=== PATIENT | female | born 1975 | race African-American/Black ===

== ENCOUNTER 2017-04-19 17:59 | Inpatient (IN) | payer MEDICAID, OTHER ==
[~2017-04-19] VITALS: Ht 165.1 cm; Wt 54.4 kg
[~2017-04-19 17:59] MED LIST: IOHEXOL-350 100 ML BOTTLE ONE; SODIUM CHLORIDE 0.9% 10ML VIAL ONE
[2017-04-19] MEDS ORDERED: MORPHINE SULFATE 4 MG/ML CPJ (NOT FOR IM USE) IV STA (18:42)
[2017-04-19] MEDS ORDERED: ONDANSETRON HCL 4MG/2ML VIAL IV STA (18:42)
[2017-04-19 19:14] LABS: BASOPHILS % 0.3 % (0.0-2.0); EOSINOPHILS % 0.2 % (0.0-5.0); HEMATOCRIT. 35.2 % (36.0-48.0); HEMOGLOBIN. 11.5 g/dL (12.0-16.0); INR 1.1; LYMPHOCYTES % 11.6 % (20.0-50.0); MEAN CORPUSCULAR HEMOGLOBIN 27.7 pg (28.0-32.0); MEAN CORPUSCULAR VOLUME 84.8 fL (81.0-99.0); MEAN PLATELET VOLUME 8.2 fl (7.4-10.4); MONOCYTES % 3.2 % (2.0-8.0); NEUTROPHILS % 84.7 % (40.0-76.0); PARTIAL THROMBOPLASTIN TIME 26.8 sec (23.4-31.0); PLATELET 430 x1000/uL (130-400); PROTHROMBIN TIME 11.4 sec (9.4-11.6); RED BLOOD CELL COUNT 4.15 mill/uL (4.2-5.4); RED CELL DISTRIBUTION WIDTH 17.7 % (11.6-14.6)
[2017-04-19 19:21] LABS: B-HCG QUANTITATIVE < 1 mIU/mL (<3); CARBON DIOXIDE 24 mEq/L (21-32); CHLORIDE 103 mEq/L (98-107); ETHANOL BLOOD < 10 mg/dL; TROPONIN I < 0.02 ng/mL (0.00-0.04)
[2017-04-19] MEDS ORDERED: PANTOPRAZOLE SODIUM 40 MG/VIAL IV ONE (20:00)
[2017-04-19] MEDS ORDERED: MORPHINE SULFATE 4 MG/ML CPJ (NOT FOR IM USE) IV ONE (22:00)
[2017-04-20] MEDS ORDERED: MORPHINE SULFATE 4 MG/ML CPJ (NOT FOR IM USE) IV ONE (00:15)
[2017-04-20] MEDS ORDERED: SODIUM CHLORIDE 0.9% 1,000 ML IV ONE (00:15)
[2017-04-20] MEDS ORDERED: ONDANSETRON HCL 4MG/2ML VIAL IV ONE (00:15)
[2017-04-20] MEDS ORDERED: ACETAMINOPHEN 325MG TABLET PO PRN (06:15)
[2017-04-20] MEDS ORDERED: DIPHENHYDRAMINE 50MG/ML VIAL IV PRN (06:15)
[2017-04-20] MEDS ORDERED: CLONIDINE 0.1MG TABLET PO PRN (06:15)
[2017-04-20] MEDS: ONDANSETRON HCL 4MG/2ML VIAL IV PRN ×2 (08:29→16:10)
[2017-04-20] MEDS: MORPHINE SULFATE 4 MG/ML CPJ (NOT FOR IM USE) IV PRN ×3 (08:29→17:41)
[2017-04-20] MEDS: PANTOPRAZOLE SODIUM 40 MG/VIAL IV SCH (09:00)
[2017-04-20] MEDS: SODIUM CHLORIDE 0.9% 1,000 ML IV SCH ×2 (10:26→23:20)
[2017-04-20 11:33] VITALS: BP 120/52
[2017-04-20 16:00] VITALS: BP 130/83
[2017-04-20] MEDS ORDERED: CARI350T PO (17:22)
[2017-04-20 20:00] VITALS: BP 90/69
[2017-04-20] MEDS ORDERED: TEMAZEPAM 15MG CAPSULE PO PRN (21:00)
[2017-04-20] MEDS: CARISOPRODOL 350 MG TABLET PO SCH (21:26)
[2017-04-20] MEDS: NICOTINE 21MG PATCH TD SCH (23:06)
[2017-04-21] VITALS: BP 96/74
[2017-04-21 04:00] VITALS: BP 100/68
[2017-04-21 08:00] VITALS: BP 111/86
[2017-04-21] MEDS: PANTOPRAZOLE SODIUM 40 MG/VIAL IV SCH (09:15)
[2017-04-21] MEDS: CARISOPRODOL 350 MG TABLET PO SCH ×2 (09:15→13:50)
[2017-04-21] MEDS: NICOTINE 21MG PATCH TD SCH (09:16)
[2017-04-21] MEDS: MORPHINE SULFATE 4 MG/ML CPJ (NOT FOR IM USE) IV PRN (09:31)
[2017-04-21 15:15] VITALS: BP 151/75
== END 2017-04-21 15:36 | disposition home or self-care (01) | DRG 241 ==
LOC: ER 18:26 → ENRESERV 04-20 07:11 → 8WST 04-20 10:58
PROVIDERS: ADMIT Internal Medicine; ATTEND Internal Medicine
DX: K29.70 Gastritis, unspecified, without bleeding (principal); J44.9 Chronic obstructive pulmonary disease, unspecified; E11.9 Type 2 diabetes mellitus without complications; G89.4 Chronic pain syndrome; F41.1 Generalized anxiety disorder; F17.210 Nicotine dependence, cigarettes, uncomplicated; G47.00 Insomnia, unspecified; M54.5 Low back pain; F12.90 Cannabis use, unspecified, uncomplicated; Z82.49 Family history of ischemic heart disease and other diseases of the circulatory system; Z83.3 Family history of diabetes mellitus; Z87.11 Personal history of peptic ulcer disease; Z87.442 Personal history of urinary calculi
CPT/HCPCS: 36415; 71010; 71275; 74174; 80053; 82962; 83690; 84484; 84702; 85025; 85610; 85730; 93005; 96374; 96375; 96376; 99285; A4216; C9113; G0482; J1200; J2270; J2405; J7030; Q9967

== ENCOUNTER 2017-06-19 15:32 | Inpatient (IN) | payer SELFPAY ==
[~2017-06-19] VITALS: Ht 162.6 cm; Wt 54.9 kg
[~2017-06-19 15:32] MED LIST changes: +CARI350T PO; -IOHEXOL-350 100 ML BOTTLE ONE; -SODIUM CHLORIDE 0.9% 10ML VIAL ONE
[2017-06-19] MEDS ORDERED: ONDANSETRON HCL 4MG/2ML VIAL IV STA (16:39)
[2017-06-19] MEDS ORDERED: SODIUM CHLORIDE 0.9% 1,000 ML IV ONE ×2 (16:39→19:10)
[2017-06-19] MEDS ORDERED: FENTANYL CITRATE/PF 50MCG/ML 2ML VIAL IV ONE (16:45)
[2017-06-19 17:18] LABS: BASOPHILS % 0.3 % (0.0-2.0); HEMATOCRIT. 36.2 % (36.0-48.0); HEMOGLOBIN. 11.9 g/dL (12.0-16.0); LYMPHOCYTES % 8.2 % (20.0-50.0); MEAN CORPUSCULAR HEMOGLOBIN 27.9 pg (28.0-32.0); MEAN CORPUSCULAR VOLUME 84.7 fL (81.0-99.0); MEAN PLATELET VOLUME 8.4 fl (7.4-10.4); MONOCYTES % 2.5 % (2.0-8.0); PLATELET 261 x1000/uL (130-400); RED BLOOD CELL COUNT 4.27 mill/uL (4.2-5.4); RED CELL DISTRIBUTION WIDTH 16.8 % (11.6-14.6)
[2017-06-19 17:25] LABS: INR 1.1; PARTIAL THROMBOPLASTIN TIME 24.1 sec (23.4-31.0); PROTHROMBIN TIME 11.3 sec (9.4-11.6)
[2017-06-19 17:28] LABS: HCG SCREEN NEGATIVE
[2017-06-19 17:29] LABS: CARBON DIOXIDE 23 mEq/L (21-32); CHLORIDE 104 mEq/L (98-107); ETHANOL BLOOD < 10 mg/dL
[2017-06-19] MEDS ORDERED: METOCLOPRAMIDE HCL 10MG/2ML VIAL IV ONE (19:15)
[2017-06-19 19:44] LABS: CLARITY URINE CLOUDY (CLEAR); COLOR URINE YELLOW (YELLOW); GLUCOSE URINE NEGATIVE (NEGATIVE); KETONES URINE 3+ (NEGATIVE); LEUKOCYTE ESTERASE URINE TRACE (NEGATIVE); NITRITE URINE POSITIVE (NEGATIVE); OCCULT BLOOD URINE 3+ (NEGATIVE); PROTEIN URINE 1+ (NEGATIVE); SPECIFIC GRAVITY URINE 1.026 (1.005-1.030); UROBILINOGEN URINE 0.2 E.U./dL (0.2-1.0)
[2017-06-19 20:20] LABS: *AMPHETAMINES SCREEN URINE NEGATIVE (NEGATIVE); *BARBITURATES SCREEN URINE NEGATIVE (NEGATIVE); *BENZODIAZEPINES SCREEN URINE NEGATIVE (NEGATIVE); *COCAINE SCREEN URINE NEGATIVE (NEGATIVE); METHADONE URINE SCREEN NEGATIVE (NEGATIVE); OPIATES URINE SCREEN NEGATIVE (NEGATIVE); PHENCYCLIDINE URINE SCREEN NEGATIVE (NEGATIVE)
[2017-06-19 20:22] LABS: CANNABINOID URINE SCREEN PRESUMTIVE POSITIVE (NEGATIVE)
[2017-06-19] MEDS ORDERED: CEFTRIAXONE 1 G PREMIX 50 ML IV ONE (20:45)
[2017-06-19 22:00] VITALS: BP 130/97
[2017-06-20] VITALS: BP 130/97
[2017-06-20] MEDS: ONDANSETRON HCL 4MG/2ML VIAL IV PRN ×4 (01:46→23:07)
[2017-06-20] MEDS: MORPHINE SULFATE 4 MG/ML CPJ (NOT FOR IM USE) IV PRN ×6 (01:46→23:08)
[2017-06-20] MEDS: DEXT 5%/0.45% NACL 1000ML 1,000 ML IV SCH ×3 (01:52→23:13)
[2017-06-20 04:00] VITALS: BP 179/82
[2017-06-20 08:00] VITALS: BP 149/79
[2017-06-20] MEDS: PANTOPRAZOLE SODIUM 40 MG/VIAL IV SCH (09:06)
[2017-06-20] MEDS: HEPARIN 5000 UNITS/ML VIAL SUBCUT SCH ×2 (09:06→20:44)
[2017-06-20] MEDS: LEVOFLOXACIN 500MG PREMIX 100 ML IV SCH (11:52)
[2017-06-20 12:00] VITALS: BP 167/78
[2017-06-20 16:00] VITALS: BP 125/68
[2017-06-20 20:00] VITALS: BP 124/71
[2017-06-21] VITALS: BP 153/92
[2017-06-21] MEDS: MORPHINE SULFATE 4 MG/ML CPJ (NOT FOR IM USE) IV PRN ×2 (03:29→07:38)
[2017-06-21 04:00] VITALS: BP 104/70
[2017-06-21 08:00] VITALS: BP 110/80
[2017-06-21] MEDS: LEVOFLOXACIN 500MG PREMIX 100 ML IV SCH (10:00)
[2017-06-21] MEDS: HEPARIN 5000 UNITS/ML VIAL SUBCUT SCH (10:03)
[2017-06-21] MEDS: PANTOPRAZOLE SODIUM 40 MG/VIAL IV SCH (10:48)
[2017-06-21] MEDS: DEXT 5%/0.45% NACL 1000ML 1,000 ML IV SCH (10:49)
[2017-06-21] MEDS ORDERED: HYDROCODONE/ACETAMINOPHEN 5/325MG TABLET PO PRN (10:50)
[2017-06-21 16:12] VITALS: BP 113/75
== END 2017-06-21 17:16 | disposition home or self-care (01) | DRG 241 ==
LOC: ER 15:35 → 6EST 17:21 → EDBEDREQ 17:45 → ENRESERV 17:48
PROVIDERS: ADMIT Hospitalist; ATTEND Hospitalist
DX: K29.70 Gastritis, unspecified, without bleeding (principal); N39.0 Urinary tract infection, site not specified; F12.10 Cannabis abuse, uncomplicated; J44.9 Chronic obstructive pulmonary disease, unspecified; G89.29 Other chronic pain; F41.1 Generalized anxiety disorder; F17.200 Nicotine dependence, unspecified, uncomplicated; G89.4 Chronic pain syndrome; Z87.11 Personal history of peptic ulcer disease; Z87.442 Personal history of urinary calculi
CPT/HCPCS: 36415; 74022; 80053; 80305; 81001; 83690; 84703; 85025; 85610; 85730; 87086; 93005; 96361; 96365; 96375; 96376; 99291; C1893; C9113; G0482; J0696; J1644; J1956; J2270; J2405; J2765; J3010; J3490; J7030

== ENCOUNTER 2017-06-30 08:29 | Emergency (ER) | payer MEDICAID ==
[~2017-06-30] VITALS: Ht 165.1 cm; Wt 55.0 kg
[2017-06-30] MEDS ORDERED: ONDANSETRON 4MG ODT PO STA (09:50)
[2017-06-30] MEDS ORDERED: ACETAMINOPHEN 500MG TABLET PO ONE (10:00)
[2017-06-30] MEDS ORDERED: CYCLOBENZAPRINE 10MG TABLET PO ONE (10:00)
[2017-06-30] MEDS ORDERED: KETOROLAC 15MG/ML VIAL IM ONE (10:00)
[2017-06-30 10:20] LABS: HEMATOCRIT. 35.7 % (36.0-48.0); HEMOGLOBIN. 11.7 g/dL (12.0-16.0); MEAN CORPUSCULAR HEMOGLOBIN 27.4 pg (28.0-32.0); MEAN CORPUSCULAR VOLUME 83.8 fL (81.0-99.0); MEAN PLATELET VOLUME 8.3 fl (7.4-10.4); PLATELET 324 x1000/uL (130-400); RED BLOOD CELL COUNT 4.27 mill/uL (4.2-5.4); RED CELL DISTRIBUTION WIDTH 16.6 % (11.6-14.6)
[2017-06-30 10:25] LABS: INR 1.1; PROTHROMBIN TIME 11.2 sec (9.4-11.6)
[2017-06-30 10:29] LABS: CARBON DIOXIDE 26 mEq/L (21-32); CHLORIDE 102 mEq/L (98-107)
[2017-06-30] MEDS ORDERED: CARISOPRODOL 350 MG TABLET PO ONE (10:45)
[2017-06-30 10:46] LABS: CLARITY URINE CLOUDY (CLEAR); COLOR URINE YELLOW (YELLOW); GLUCOSE URINE NEGATIVE (NEGATIVE); KETONES URINE 2+ (NEGATIVE); LEUKOCYTE ESTERASE URINE 1+ (NEGATIVE); NITRITE URINE NEGATIVE (NEGATIVE); OCCULT BLOOD URINE NEGATIVE (NEGATIVE); PH URINE >=9.0 (4.5-8.0); PROTEIN URINE 2+ (NEGATIVE); UROBILINOGEN URINE 0.2 E.U./dL (0.2-1.0)
[2017-06-30 10:58] LABS: PLATELET ESTIMATE NORMAL
[2017-06-30] MEDS ORDERED: CEFTRIAXONE 1 G PREMIX 50 ML IV ONE (11:00)
[2017-06-30] MEDS ORDERED: IOHEXOL-300 100 ML BOTTLE ONE (13:26)
[2017-06-30] MEDS ORDERED: ONDANSETRON HCL 4MG/2ML VIAL IV STA (14:02)
[2017-06-30] MEDS ORDERED: MORPHINE SULFATE 4 MG/ML CPJ (NOT FOR IM USE) IV STA (14:02)
[2017-06-30] MEDS ORDERED: MORPHINE SULFATE 10 MG/ML CPJ IV NR (15:15)
[2017-06-30] MEDS ORDERED: DOXYCYCLINE HYCLATE 100MG CAPSULE PO ONE (15:45)
[2017-06-30] MEDS ORDERED: METRONIDAZOLE 500MG TABLET PO ONE (16:00)
[2017-06-30 16:30] VITALS: BP 136/84
== END 2017-06-30 16:35 | disposition home or self-care (01) ==
LOC: ER 08:49
DX: D25.9 Leiomyoma of uterus, unspecified (principal); I10 Essential (primary) hypertension; M62.830 Muscle spasm of back; Z87.442 Personal history of urinary calculi
CPT/HCPCS: 36415; 74177; 76830; 76856; 80053; 81001; 81025; 83690; 85025; 85610; 96365; 96372; 96375; 99285; J0696; J1885; J2270; J2405; Q0162; Q9967

== ENCOUNTER 2017-07-14 04:01 | Emergency (ER) | payer MEDICAID ==
[~2017-07-14] VITALS: Ht 160 cm; Wt 61.0 kg
[2017-07-14] MEDS ORDERED: ONDANSETRON HCL 4MG/2ML VIAL IV STA (04:28)
[2017-07-14] MEDS ORDERED: HALOPERIDOL LACTATE 5MG/ML VIAL IM ONE (04:45)
[2017-07-14] MEDS ORDERED: HALOPERIDOL LACTATE 5MG/ML VIAL IM NR (04:45)
[2017-07-14 04:58] LABS: BASOPHILS % 0.4 % (0.0-2.0); EOSINOPHILS % 0.1 % (0.0-5.0); HEMATOCRIT. 38.8 % (36.0-48.0); HEMOGLOBIN. 12.4 g/dL (12.0-16.0); LYMPHOCYTES % 9.5 % (20.0-50.0); MEAN CORPUSCULAR HEMOGLOBIN 27.3 pg (28.0-32.0); MEAN PLATELET VOLUME 8.5 fl (7.4-10.4); MONOCYTES % 2.5 % (2.0-8.0); NEUTROPHILS % 87.5 % (40.0-76.0); PLATELET 328 x1000/uL (130-400); RED BLOOD CELL COUNT 4.56 mill/uL (4.2-5.4); RED CELL DISTRIBUTION WIDTH 17.2 % (11.6-14.6)
[2017-07-14] MEDS ORDERED: CAPSAICIN 0.075% CREAM 60GM TOP NR (05:00)
[2017-07-14 05:05] LABS: INR 1.1; PROTHROMBIN TIME 11.4 sec (9.4-11.6)
[2017-07-14 05:13] LABS: CARBON DIOXIDE 28 mEq/L (21-32); CHLORIDE 101 mEq/L (98-107)
[2017-07-14 05:40] LABS: CLARITY URINE TURBID (CLEAR); COLOR URINE YELLOW (YELLOW); GLUCOSE URINE NEGATIVE (NEGATIVE); KETONES URINE 1+ (NEGATIVE); LEUKOCYTE ESTERASE URINE NEGATIVE (NEGATIVE); NITRITE URINE NEGATIVE (NEGATIVE); OCCULT BLOOD URINE NEGATIVE (NEGATIVE); PROTEIN URINE TRACE (NEGATIVE); UROBILINOGEN URINE 0.2 E.U./dL (0.2-1.0)
[2017-07-14] MEDS ORDERED: LIDOCAINE 5% PATCH TOP SCH ×2 (06:20→09:00)
[2017-07-14 07:51] VITALS: BP 158/79
== END 2017-07-14 07:51 | disposition home or self-care (01) ==
LOC: ER 04:01 → ENRESERV 06:58 → CANRESERV 06:58 → ER 07:51 → CANBEDREQ 08:33
DX: R11.2 Nausea with vomiting, unspecified (principal); R19.7 Diarrhea, unspecified; M54.9 Dorsalgia, unspecified; G89.29 Other chronic pain; F12.10 Cannabis abuse, uncomplicated; R79.1 Abnormal coagulation profile; I10 Essential (primary) hypertension; Z87.442 Personal history of urinary calculi; Z76.5 Malingerer [conscious simulation]
CPT/HCPCS: 36415; 80053; 81001; 83690; 85025; 85610; 93005; 96372; 96374; 99285; J1630; J2405; Z7610

== ENCOUNTER 2017-08-26 14:36 | Emergency (ER) | payer MEDICAID ==
[~2017-08-26] VITALS: Ht 165.1 cm; Wt 57.0 kg
[2017-08-26 15:22] VITALS: BP 179/86
== END 2017-08-26 18:50 | disposition left against medical advice (07) ==
LOC: ER 15:51
DX: R11.10 Vomiting, unspecified (principal); Z53.21 Procedure and treatment not carried out due to patient leaving prior to being seen by health care provider

== ENCOUNTER 2017-11-23 19:09 | Emergency (ER) | payer MEDICAID, OTHER ==
[~2017-11-23] VITALS: Ht 162.6 cm; Wt 54.0 kg
[2017-11-23] MEDS ORDERED: MORPHINE SULFATE 4 MG/ML CPJ (NOT FOR IM USE) IV STA (22:40)
[2017-11-23] MEDS ORDERED: SODIUM CHLORIDE 0.9% 1,000 ML IV ONE (22:40)
[2017-11-23] MEDS ORDERED: ONDANSETRON HCL 4MG/2ML VIAL IV STA (22:40)
[2017-11-23 23:15] LABS: HEMATOCRIT. 36.1 % (36.0-48.0); MEAN CORPUSCULAR HEMOGLOBIN 29.3 pg (28.0-32.0); MEAN CORPUSCULAR VOLUME 87.7 fL (81.0-99.0); MEAN PLATELET VOLUME 8.4 fl (7.4-10.4); PLATELET 255 x1000/uL (130-400); RED BLOOD CELL COUNT 4.12 mill/uL (4.2-5.4); RED CELL DISTRIBUTION WIDTH 16.7 % (11.6-14.6)
[2017-11-23 23:20] LABS: CHLORIDE 106 mEq/L (98-107)
[2017-11-23 23:22] LABS: INR 1.1; PROTHROMBIN TIME 11.7 sec (9.4-11.6)
[2017-11-23 23:24] LABS: ETHANOL BLOOD < 10 mg/dL
[2017-11-23 23:39] LABS: CLARITY URINE TURBID (CLEAR); COLOR URINE YELLOW (YELLOW); KETONES URINE 1+ (NEGATIVE); LEUKOCYTE ESTERASE URINE NEGATIVE (NEGATIVE); NITRITE URINE NEGATIVE (NEGATIVE); OCCULT BLOOD URINE 3+ (NEGATIVE); PH URINE 8.5 (4.5-8.0); PROTEIN URINE 1+ (NEGATIVE); SPECIFIC GRAVITY URINE 1.017 (1.005-1.030); UROBILINOGEN URINE 0.2 E.U./dL (0.2-1.0)
[2017-11-23 23:47] LABS: *AMPHETAMINES SCREEN URINE NEGATIVE (NEGATIVE); *BARBITURATES SCREEN URINE NEGATIVE (NEGATIVE); *COCAINE SCREEN URINE NEGATIVE (NEGATIVE)
[2017-11-23 23:48] LABS: METHADONE URINE SCREEN NEGATIVE (NEGATIVE); OPIATES URINE SCREEN NEGATIVE (NEGATIVE); PHENCYCLIDINE URINE SCREEN NEGATIVE (NEGATIVE)
[2017-11-24] MEDS ORDERED: POTASSIUM CHLORIDE 20MEQ TABLET SR PO ONE
[2017-11-24 00:08] LABS: *BENZODIAZEPINES SCREEN URINE PRESUMTIVE POSITIVE (NEGATIVE); CANNABINOID URINE SCREEN PRESUMTIVE POSITIVE (NEGATIVE)
[2017-11-24 00:25] LABS: PLATELET ESTIMATE NORMAL
[2017-11-24] MEDS ORDERED: MORPHINE SULFATE 4 MG/ML CPJ (NOT FOR IM USE) IV ONE (01:30)
[2017-11-24 06:51] VITALS: BP 128/95
== END 2017-11-24 07:04 | disposition home or self-care (01) ==
LOC: ER 19:09
DX: N83.209 Unspecified ovarian cyst, unspecified side (principal); J06.9 Acute upper respiratory infection, unspecified; I10 Essential (primary) hypertension
CPT/HCPCS: 36415; 71045; 74176; 76700; 80053; 80305; 81003; 81025; 83690; 84484; 85025; 85610; 93005; 96361; 96374; 96375; 96376; 99285; G0482; J2270; J2405; J7030; Z7610

== ENCOUNTER 2018-03-09 04:50 | Emergency (ER) | payer OTHER ==
[~2018-03-09] VITALS: Ht 165.1 cm; Wt 65.0 kg
[~2018-03-09 04:50] MED LIST changes: -CARI350T PO; +HYDR-4001 MT; +S350 PO
[2018-03-09] MEDS ORDERED: FAMOTIDINE 20MG/2ML VIAL IV STA (05:04)
[2018-03-09] MEDS ORDERED: ONDANSETRON HCL 4MG/2ML VIAL IV STA (05:04)
[2018-03-09] MEDS ORDERED: SODIUM CHLORIDE 0.9% 1,000 ML IV ONE (05:04)
[2018-03-09] MEDS ORDERED: MAGNESIUM/ALUMINUM HYDROXIDE/SIMETHICONE 30ML UDC PO STA (05:04)
[2018-03-09] MEDS ORDERED: KETOROLAC 30MG/ML VIAL IV STA (05:04)
[2018-03-09] MEDS ORDERED: MORPHINE SULFATE 4 MG/ML CPJ (NOT FOR IM USE) IV STA (05:04)
[2018-03-09 05:29] LABS: BASOPHILS % 0.5 % (0.0-2.0); HEMATOCRIT. 38.8 % (36.0-48.0); LYMPHOCYTES % 9.3 % (20.0-50.0); MEAN CORPUSCULAR HEMOGLOBIN 29.6 pg (28.0-32.0); MEAN CORPUSCULAR VOLUME 88.4 fL (81.0-99.0); MEAN PLATELET VOLUME 7.5 fl (7.4-10.4); MONOCYTES % 3.9 % (2.0-8.0); NEUTROPHILS % 86.3 % (40.0-76.0); PLATELET 281 x1000/uL (130-400); RED BLOOD CELL COUNT 4.38 mill/uL (4.2-5.4); RED CELL DISTRIBUTION WIDTH 16.1 % (11.6-14.6)
[2018-03-09 05:36] LABS: CHLORIDE 106 mEq/L (98-107)
[2018-03-09 05:39] LABS: INR 1.1; PROTHROMBIN TIME 11.3 sec (9.4-11.6)
[2018-03-09 05:40] LABS: ETHANOL BLOOD < 10 mg/dL; HCG SCREEN NEGATIVE
[2018-03-09] MEDS ORDERED: MORPHINE SULFATE 4 MG/ML CPJ (NOT FOR IM USE) IV ONE (06:30)
[2018-03-09 08:58] VITALS: BP 135/78
== END 2018-03-09 09:45 | disposition home or self-care (01) ==
LOC: ER 04:50
DX: K29.00 Acute gastritis without bleeding (principal); I10 Essential (primary) hypertension; G40.909 Epilepsy, unspecified, not intractable, without status epilepticus; G35 Multiple sclerosis; Z87.11 Personal history of peptic ulcer disease
CPT/HCPCS: 36415; 71045; 80053; 83605; 83690; 83880; 84484; 84703; 85025; 85610; 93005; 96361; 96374; 96375; 96376; 99285; G0482; J1885; J2270; J2405; J3490; J7030; Z7610

== ENCOUNTER 2018-05-13 09:28 | Inpatient (IN) | payer OTHER ==
[~2018-05-13] VITALS: Ht 160 cm; Wt 58.1 kg
[2018-05-13] MEDS ORDERED: SODIUM CHLORIDE 0.9% 1,000 ML IV ONE (10:11)
[2018-05-13] MEDS ORDERED: ONDANSETRON HCL 4MG/2ML INJ IV STA (10:11)
[2018-05-13] MEDS ORDERED: FAMOTIDINE 20MG/2ML VIAL IV STA (10:11)
[2018-05-13] MEDS ORDERED: MORPHINE SULFATE 4 MG/ML CPJ (NOT FOR IM USE) IV STA (10:11)
[2018-05-13 11:22] LABS: CLARITY URINE CLOUDY (CLEAR); COLOR URINE DARK YELLOW (YELLOW); KETONES URINE 4+ (NEGATIVE); LEUKOCYTE ESTERASE URINE TRACE (NEGATIVE); NITRITE URINE NEGATIVE (NEGATIVE); OCCULT BLOOD URINE 2+ (NEGATIVE); PROTEIN URINE 3+ (NEGATIVE); SPECIFIC GRAVITY URINE 1.035 (1.005-1.030)
[2018-05-13 11:23] LABS: *AMPHETAMINES SCREEN URINE NEGATIVE (NEGATIVE); METHADONE URINE SCREEN NEGATIVE (NEGATIVE); OPIATES URINE SCREEN NEGATIVE (NEGATIVE); PHENCYCLIDINE URINE SCREEN NEGATIVE (NEGATIVE)
[2018-05-13 11:26] LABS: *BENZODIAZEPINES SCREEN URINE NEGATIVE (NEGATIVE)
[2018-05-13 11:30] LABS: *BARBITURATES SCREEN URINE NEGATIVE (NEGATIVE); *COCAINE SCREEN URINE NEGATIVE (NEGATIVE)
[2018-05-13 11:37] LABS: CANNABINOID URINE SCREEN PRESUMTIVE POSITIVE (NEGATIVE)
[2018-05-13 11:38] LABS: BASOPHILS % 0.5 % (0.0-2.0); EOSINOPHILS % 0.1 % (0.0-5.0); HEMATOCRIT. 42.8 % (36.0-48.0); HEMOGLOBIN. 14.4 g/dL (12.0-16.0); LYMPHOCYTES % 7.6 % (20.0-50.0); MEAN CORPUSCULAR HEMOGLOBIN 30.1 pg (28.0-32.0); MEAN CORPUSCULAR VOLUME 89.4 fL (81.0-99.0); MEAN PLATELET VOLUME 8.3 fl (7.4-10.4); MONOCYTES % 7.9 % (2.0-8.0); NEUTROPHILS % 83.9 % (40.0-76.0); PLATELET 402 x1000/uL (130-400); RED BLOOD CELL COUNT 4.78 mill/uL (4.2-5.4); RED CELL DISTRIBUTION WIDTH 16.9 % (11.6-14.6)
[2018-05-13 11:39] LABS: CHLORIDE 99 mEq/L (98-107)
[2018-05-13 11:41] LABS: INR 1.1; PROTHROMBIN TIME 10.9 sec (9.1-11.1)
[2018-05-13 11:56] LABS: HCG SCREEN NEGATIVE
[2018-05-13] MEDS ORDERED: CEFTRIAXONE 1 G PREMIX 50 ML IV ONE (12:15)
[2018-05-13] MEDS ORDERED: MORPHINE SULFATE 4 MG/ML CPJ (NOT FOR IM USE) IV ONE (13:45)
[2018-05-13] MEDS ORDERED: KETOROLAC 30MG/ML VIAL IV ONE (13:45)
[2018-05-13] MEDS ORDERED: ONDANSETRON HCL 4MG/2ML INJ IV ONE (13:45)
[2018-05-13 16:56] VITALS: BP 132/78
[2018-05-13 17:00] VITALS: BP 132/81
[2018-05-13] MEDS ORDERED: TUBERCULIN,PURIF.PROT.DERIV. 5 TU/0.1 ML SYR ID ONE ×2 (18:30→20:00)
[2018-05-13 20:00] VITALS: BP 136/81
[2018-05-13] MEDS ORDERED: CEFTRIAXONE 1 G PREMIX 50 ML IV SCH (20:00)
[2018-05-13] MEDS: MORPHINE SULFATE 4 MG/ML CPJ (NOT FOR IM USE) IV PRN (20:43)
[2018-05-14] VITALS: BP 140/77
[2018-05-14] MEDS: MORPHINE SULFATE 4 MG/ML CPJ (NOT FOR IM USE) IV PRN ×4 (02:04→18:16)
[2018-05-14 04:48] VITALS: BP 112/72
[2018-05-14 08:00] VITALS: BP 107/72
[2018-05-14 12:00] VITALS: BP 108/72
[2018-05-14] MEDS ORDERED: OMEPRAZOLE 20MG CAPSULE EXTENDED RELEASE PO SCH (14:00)
[2018-05-14] MEDS ORDERED: NICOTINE 7MG PATCH TD SCH (15:00)
[2018-05-14] MEDS ORDERED: ONDANSETRON HCL 4MG/2ML INJ IV PRN (15:00)
[2018-05-14 16:00] VITALS: BP 118/71
[2018-05-14 18:10] LABS: BASOPHILS % 0.9 % (0.0-2.0); EOSINOPHILS % 0.8 % (0.0-5.0); HEMATOCRIT. 43.1 % (36.0-48.0); MEAN CORPUSCULAR HEMOGLOBIN 29.5 pg (28.0-32.0); MEAN CORPUSCULAR VOLUME 90.8 fL (81.0-99.0); MEAN PLATELET VOLUME 8.6 fl (7.4-10.4); MONOCYTES % 10.6 % (2.0-8.0); NEUTROPHILS % 54.7 % (40.0-76.0); PLATELET 379 x1000/uL (130-400); RED BLOOD CELL COUNT 4.75 mill/uL (4.2-5.4); RED CELL DISTRIBUTION WIDTH 16.9 % (11.6-14.6)
[2018-05-14 18:24] LABS: CHLORIDE 98 mEq/L (98-107)
[2018-05-14 18:34] VITALS: BP 118/71
== END 2018-05-14 18:56 | disposition short-term general hospital (02) | DRG 241 ==
LOC: ER 09:28 → EDBEDREQ 13:11 → 6EST 13:14 → EDBEDREQTM 13:17 → EDBEDREQ 13:17 → ENRESERV 15:18
PROVIDERS: ADMIT Internal Medicine; ATTEND Internal Medicine
DX: K29.70 Gastritis, unspecified, without bleeding (principal); F12.90 Cannabis use, unspecified, uncomplicated; K27.9 Peptic ulcer, site unspecified, unspecified as acute or chronic, without hemorrhage or perforation; N39.0 Urinary tract infection, site not specified; I10 Essential (primary) hypertension; G40.909 Epilepsy, unspecified, not intractable, without status epilepticus; F17.200 Nicotine dependence, unspecified, uncomplicated; Z87.11 Personal history of peptic ulcer disease; Z71.6 Tobacco abuse counseling
CPT/HCPCS: 36415; 74176; 80048; 80053; 80305; 81003; 83690; 84703; 85025; 85610; 90585; 96374; 96375; 99291; J0696; J1885; J2270; J2405; J3490; J7030; J7040

== ENCOUNTER 2018-08-02 09:45 | Emergency (ER) | payer OTHER ==
[~2018-08-02] VITALS: Ht 167.6 cm; Wt 63.0 kg
[2018-08-02] MEDS ORDERED: KETOROLAC 30MG/ML VIAL IM ONE (11:30)
[2018-08-02 12:44] LABS: CLARITY URINE CLEAR (CLEAR); COLOR URINE YELLOW (YELLOW); KETONES URINE TRACE (NEGATIVE); LEUKOCYTE ESTERASE URINE TRACE (NEGATIVE); NITRITE URINE NEGATIVE (NEGATIVE); OCCULT BLOOD URINE TRACE (NEGATIVE); PROTEIN URINE 1+ (NEGATIVE); UROBILINOGEN URINE 0.2 E.U./dL (0.2-1.0)
[2018-08-02 13:19] LABS: *AMPHETAMINES SCREEN URINE NEGATIVE (NEGATIVE); *BARBITURATES SCREEN URINE NEGATIVE (NEGATIVE)
[2018-08-02 13:20] LABS: *COCAINE SCREEN URINE NEGATIVE (NEGATIVE); METHADONE URINE SCREEN NEGATIVE (NEGATIVE); PHENCYCLIDINE URINE SCREEN NEGATIVE (NEGATIVE)
[2018-08-02 13:25] LABS: *BENZODIAZEPINES SCREEN URINE PRESUMTIVE POSITIVE (NEGATIVE); CANNABINOID URINE SCREEN PRESUMTIVE POSITIVE (NEGATIVE); OPIATES URINE SCREEN PRESUMTIVE POSITIVE (NEGATIVE)
[2018-08-02] MEDS ORDERED: ACETAMINOPHEN 325MG TABLET PO ONE (13:30)
[2018-08-02] MEDS ORDERED: ACETAMINOPHEN WITH CODEINE 300/30MG TABLET PO ONE (14:15)
[2018-08-02] MEDS ORDERED: ONDANSETRON 4MG ODT PO ONE (14:15)
[2018-08-02 14:43] VITALS: BP 150/91
== END 2018-08-02 14:45 | disposition home or self-care (01) ==
LOC: ER 09:51
DX: G89.29 Other chronic pain (principal); M54.9 Dorsalgia, unspecified; N39.0 Urinary tract infection, site not specified; A59.9 Trichomoniasis, unspecified; E11.9 Type 2 diabetes mellitus without complications; I10 Essential (primary) hypertension; Z79.899 Other long term (current) drug therapy
CPT/HCPCS: 80305; 81003; 81025; 96372; 99283; J1885; Q0162

== ENCOUNTER 2018-08-10 02:39 | Inpatient (IN) | payer OTHER ==
[~2018-08-10] VITALS: Ht 165.1 cm; Wt 56.7 kg
[2018-08-10] MEDS ORDERED: KETOROLAC 30MG/ML VIAL IV STA (04:20)
[2018-08-10] MEDS ORDERED: ONDANSETRON HCL 4MG/2ML INJ IV STA (04:20)
[2018-08-10 05:21] LABS: BASOPHILS % 0.7 % (0.0-2.0); CHLORIDE 103 mEq/L (98-107); EOSINOPHILS % 0.1 % (0.0-5.0); HEMATOCRIT. 42.4 % (36.0-48.0); LYMPHOCYTES % 8.4 % (20.0-50.0); MEAN CORPUSCULAR HEMOGLOBIN 29.9 pg (28.0-32.0); MEAN CORPUSCULAR VOLUME 90.6 fL (81.0-99.0); MEAN PLATELET VOLUME 8.4 fl (7.4-10.4); MONOCYTES % 1.6 % (2.0-8.0); NEUTROPHILS % 89.2 % (40.0-76.0); PLATELET 320 x1000/uL (130-400); RED BLOOD CELL COUNT 4.67 mill/uL (4.2-5.4); RED CELL DISTRIBUTION WIDTH 14.8 % (11.6-14.6)
[2018-08-10] MEDS ORDERED: HALOPERIDOL LACTATE 5MG/ML VIAL IM ONE (06:00)
[2018-08-10] MEDS ORDERED: VISCOUS LIDOCAINE 2% 15 ML UDC MM STA (06:43)
[2018-08-10] MEDS ORDERED: MAGNESIUM/ALUMINUM HYDROXIDE/SIMETHICONE 30ML UDC PO ONE (06:45)
[2018-08-10] MEDS ORDERED: ONDANSETRON HCL 4MG/2ML INJ IV ONE (07:30)
[2018-08-10] MEDS ORDERED: MORPHINE SULFATE 4 MG/ML CPJ (NOT FOR IM USE) IV ONE (07:30)
[2018-08-10 09:00] VITALS: BP 116/65
[2018-08-10] MEDS ORDERED: MORPHINE SULFATE 10 MG/ML CPJ IV SCH (09:30)
[2018-08-10 11:30] VITALS: BP 147/98
[2018-08-10 12:00] VITALS: BP 107/61
[2018-08-10] MEDS ORDERED: NA PHOS,M-B/NA PHOS,DI-BA ENEMA 118ML PR PRN (12:45)
[2018-08-10] MEDS ORDERED: ONDANSETRON HCL 4MG/2ML INJ IV PRN (12:45)
[2018-08-10] MEDS ORDERED: ACETAMINOPHEN 325MG TABLET PO PRN (12:45)
[2018-08-10] MEDS ORDERED: GUAIFENESIN 200MG/10ML SUGAR FREE UDC PO PRN (12:45)
[2018-08-10] MEDS ORDERED: IPRATROPIUM/ALBUTEROL 0.5-3(2.5)MG/3ML NEB INH PRN (12:45)
[2018-08-10] MEDS ORDERED: DOCUSATE SODIUM 100MG CAPSULE PO PRN (12:45)
[2018-08-10] MEDS ORDERED: LORAZEPAM 2MG/ML CPJ IV PRN (12:45)
[2018-08-10] MEDS ORDERED: HYDROCODONE/ACETAMINOPHEN 5/325MG TABLET PO PRN (12:45)
[2018-08-10] MEDS ORDERED: MAGNESIUM/ALUMINUM HYDROXIDE/SIMETHICONE 30ML UDC PO PRN (12:45)
[2018-08-10] MEDS ORDERED: DIPHENHYDRAMINE 50MG/ML VIAL IV PRN (12:45)
[2018-08-10] MEDS ORDERED: CLONIDINE 0.1MG TABLET PO PRN (12:45)
[2018-08-10] MEDS ORDERED: SODIUM CHLORIDE 0.45% 1,000 ML IV SCH (13:00)
[2018-08-10] MEDS ORDERED: ENOXAPARIN 40MG/0.4ML SYR SUBCUT SCH (13:00)
[2018-08-10] MEDS ORDERED: MORPHINE SULFATE 10 MG/ML CPJ IV PRN (13:00)
[2018-08-10 13:30] LABS: CHLORIDE 104 mEq/L (98-107)
[2018-08-10 14:00] VITALS: BP 124/70
== END 2018-08-10 21:06 | disposition short-term general hospital (02) | DRG 241 ==
LOC: ER 02:39 → 6EST 07:55 → ENRESERV 09:24
PROVIDERS: ADMIT Internal Medicine; ATTEND Internal Medicine
DX: K29.70 Gastritis, unspecified, without bleeding (principal); E11.9 Type 2 diabetes mellitus without complications; K52.9 Noninfective gastroenteritis and colitis, unspecified; E86.0 Dehydration; N23 Unspecified renal colic; I10 Essential (primary) hypertension; Z87.442 Personal history of urinary calculi
CPT/HCPCS: 36415; 74176; 80048; 96372; 96374; 96375; 99285; J1630; J1650; J1885; J2270; J2405

== ENCOUNTER 2019-01-17 07:29 | Emergency (ER) | payer OTHER ==
[~2019-01-17] VITALS: Ht 162.6 cm; Wt 55.0 kg
[2019-01-17] MEDS ORDERED: KETOROLAC 30MG/ML VIAL IV STA (07:54)
[2019-01-17] MEDS ORDERED: LEVETIRACETAM 500MG PREMIX 100 ML IV ONE (08:00)
[2019-01-17 08:08] LABS: BASOPHILS % 0.7 % (0.0-2.0); EOSINOPHILS % 0.5 % (0.0-5.0); HEMATOCRIT. 37.8 % (36.0-48.0); HEMOGLOBIN. 12.8 g/dL (12.0-16.0); LYMPHOCYTES % 16.4 % (20.0-50.0); MEAN CORPUSCULAR HEMOGLOBIN 30.1 pg (28.0-32.0); MEAN CORPUSCULAR VOLUME 88.9 fL (81.0-99.0); MEAN PLATELET VOLUME 8.9 fl (7.4-10.4); NEUTROPHILS % 78.4 % (40.0-76.0); PLATELET 362 x1000/uL (130-400); RED BLOOD CELL COUNT 4.25 mill/uL (4.2-5.4); RED CELL DISTRIBUTION WIDTH 15.5 % (11.6-14.6)
[2019-01-17 08:12] LABS: CHLORIDE 109 mEq/L (98-107)
[2019-01-17 08:16] LABS: ETHANOL BLOOD 242 mg/dL
[2019-01-17 08:21] LABS: HCG SCREEN NEGATIVE
[2019-01-17] MEDS ORDERED: ONDANSETRON HCL 4MG/2ML INJ IV ONE ×2 (09:00→10:00)
[2019-01-17] MEDS ORDERED: LORAZEPAM 2MG/ML CPJ IV ONE (10:00)
[2019-01-17] MEDS ORDERED: CHLORDIAZEPOXIDE 25MG CAPSULE PO ONE (10:00)
[2019-01-17 14:30] VITALS: BP 128/72
== END 2019-01-17 15:00 | disposition home or self-care (01) ==
LOC: ER 07:29
DX: T51.91XA Toxic effect of unspecified alcohol, accidental (unintentional), initial encounter (principal); G40.89 Other seizures; R07.9 Chest pain, unspecified; R11.2 Nausea with vomiting, unspecified; E11.9 Type 2 diabetes mellitus without complications; I10 Essential (primary) hypertension; Z87.442 Personal history of urinary calculi; Y92.89 Other specified places as the place of occurrence of the external cause
CPT/HCPCS: 36415; 71045; 80053; 80320; 84484; 84703; 85025; 93005; 96374; 96375; 96376; 99284; J1885; J1953; J2060; J2405; G0480

== ENCOUNTER 2019-01-17 19:36 | Emergency (ER) | payer MEDICAID, OTHER ==
[~2019-01-17] VITALS: Ht 165.1 cm; Wt 59.0 kg
[2019-01-17] MEDS ORDERED: SODIUM CHLORIDE 0.9% 1,000 ML IV ONE (20:36)
[2019-01-17] MEDS ORDERED: KETOROLAC 15MG/ML VIAL IV ONE ×2 (20:45→22:00)
[2019-01-17] MEDS ORDERED: LEVETIRACETAM 500MG PREMIX 100 ML IV ONE (20:45)
[2019-01-17] MEDS ORDERED: ONDANSETRON HCL 4MG/2ML INJ IV ONE (21:00)
[2019-01-17 21:39] LABS: BASOPHILS % 0.3 % (0.0-2.0); EOSINOPHILS % 0.1 % (0.0-5.0); HEMATOCRIT. 39.5 % (36.0-48.0); HEMOGLOBIN. 13.6 g/dL (12.0-16.0); LYMPHOCYTES % 11.2 % (20.0-50.0); MEAN CORPUSCULAR HEMOGLOBIN 30.9 pg (28.0-32.0); MEAN CORPUSCULAR VOLUME 89.7 fL (81.0-99.0); MEAN PLATELET VOLUME 8.8 fl (7.4-10.4); MONOCYTES % 4.9 % (2.0-8.0); NEUTROPHILS % 83.5 % (40.0-76.0); PLATELET 313 x1000/uL (130-400); RED CELL DISTRIBUTION WIDTH 15.7 % (11.6-14.6)
[2019-01-17 21:41] LABS: CHLORIDE 105 mEq/L (98-107)
[2019-01-17 21:46] LABS: ETHANOL BLOOD 12 mg/dL
[2019-01-17 23:04] LABS: HCG SCREEN NEGATIVE
[2019-01-18] MEDS ORDERED: ONDANSETRON HCL 4MG/2ML INJ IV ONE (00:45)
[2019-01-18 05:22] LABS: CLARITY URINE CLEAR (CLEAR); COLOR URINE YELLOW (YELLOW); KETONES URINE 3+ (NEGATIVE); LEUKOCYTE ESTERASE URINE NEGATIVE (NEGATIVE); NITRITE URINE NEGATIVE (NEGATIVE); OCCULT BLOOD URINE TRACE (NEGATIVE); PROTEIN URINE 1+ (NEGATIVE); SPECIFIC GRAVITY URINE 1.021 (1.005-1.030); UROBILINOGEN URINE 0.2 E.U./dL (0.2-1.0)
[2019-01-18 05:39] LABS: *AMPHETAMINES SCREEN URINE NEGATIVE (NEGATIVE); *BARBITURATES SCREEN URINE NEGATIVE (NEGATIVE); *COCAINE SCREEN URINE NEGATIVE (NEGATIVE); METHADONE URINE SCREEN NEGATIVE (NEGATIVE); OPIATES URINE SCREEN NEGATIVE (NEGATIVE)
[2019-01-18 05:40] LABS: PHENCYCLIDINE URINE SCREEN NEGATIVE (NEGATIVE)
[2019-01-18 05:59] LABS: *BENZODIAZEPINES SCREEN URINE PRESUMTIVE POSITIVE (NEGATIVE); CANNABINOID URINE SCREEN PRESUMTIVE POSITIVE (NEGATIVE)
[2019-01-18] MEDS ORDERED: ONDANSETRON 4MG ODT PO ONE (07:00)
[2019-01-18] MEDS ORDERED: ACETAMINOPHEN 325MG TABLET PO ONE (07:00)
[2019-01-18] MEDS ORDERED: TRAMADOL 50MG TABLET PO ONE (07:45)
[2019-01-18] MEDS ORDERED: KETOROLAC 60MG/2ML VIAL IM ONE (08:00)
[2019-01-18 08:15] VITALS: BP 171/94
[2019-01-18] MEDS ORDERED: KETOROLAC 15MG/ML VIAL IV ONE (08:15)
== END 2019-01-18 09:00 | disposition home or self-care (01) ==
LOC: ER 19:36
DX: G40.909 Epilepsy, unspecified, not intractable, without status epilepticus (principal); N83.202 Unspecified ovarian cyst, left side; R11.0 Nausea; M54.9 Dorsalgia, unspecified; R07.81 Pleurodynia; I10 Essential (primary) hypertension; E11.9 Type 2 diabetes mellitus without complications
CPT/HCPCS: 36415; 70450; 71101; 76770; 80053; 80305; 80320; 81003; 84703; 85025; 96365; 96372; 96375; 96376; 99284; J1885; J1953; J2405; J7030; Q0162; Z7610; G0480

== ENCOUNTER 2019-03-29 17:05 | Emergency (ER) | payer MEDICAID, OTHER ==
[~2019-03-29] VITALS: Ht 165.1 cm; Wt 59.0 kg
[~2019-03-29 17:05] MED LIST changes: +CARI-166 PO; -S350 PO
[2019-03-29] MEDS ORDERED: HYDROCODONE/ACETAMINOPHEN 5/325MG TABLET PO STA (18:26)
[2019-03-29 19:00] LABS: BASOPHILS % 0.5 % (0.0-2.0); EOSINOPHILS % 2.4 % (0.0-5.0); HEMATOCRIT. 39.2 % (36.0-48.0); HEMOGLOBIN. 12.8 g/dL (12.0-16.0); LYMPHOCYTES % 32.8 % (20.0-50.0); MEAN CORPUSCULAR HEMOGLOBIN 28.9 pg (28.0-32.0); MEAN CORPUSCULAR VOLUME 88.6 fL (81.0-99.0); MEAN PLATELET VOLUME 8.8 fl (7.4-10.4); MONOCYTES % 10.2 % (2.0-8.0); NEUTROPHILS % 54.1 % (40.0-76.0); PLATELET 294 x1000/uL (130-400); RED BLOOD CELL COUNT 4.42 mill/uL (4.2-5.4); RED CELL DISTRIBUTION WIDTH 17.8 % (11.6-14.6)
[2019-03-29 19:06] LABS: PROTHROMBIN TIME 10.4 sec (9.6-11.0)
[2019-03-29 19:12] LABS: CHLORIDE 104 mEq/L (98-107)
[2019-03-29 19:20] LABS: CLARITY URINE CLOUDY (CLEAR); COLOR URINE DARK YELLOW (YELLOW); KETONES URINE TRACE (NEGATIVE); LEUKOCYTE ESTERASE URINE TRACE (NEGATIVE); NITRITE URINE NEGATIVE (NEGATIVE); OCCULT BLOOD URINE NEGATIVE (NEGATIVE); PROTEIN URINE 1+ (NEGATIVE); SPECIFIC GRAVITY URINE 1.031 (1.005-1.030)
[2019-03-29] MEDS ORDERED: CEFTRIAXONE 1 G PREMIX 50 ML IV ONE (19:30)
[2019-03-29] MEDS ORDERED: MORPHINE SULFATE 4 MG/ML CPJ (NOT FOR IM USE) IV STA (19:53)
[2019-03-29] MEDS ORDERED: ONDANSETRON HCL 4MG/2ML INJ IV STA (19:53)
[2019-03-29 21:22] VITALS: BP 123/78
== END 2019-03-29 21:23 | disposition home or self-care (01) ==
LOC: ER 17:05
DX: K85.90 Acute pancreatitis without necrosis or infection, unspecified (principal); N39.0 Urinary tract infection, site not specified; I10 Essential (primary) hypertension; F12.10 Cannabis abuse, uncomplicated; K64.4 Residual hemorrhoidal skin tags; F17.200 Nicotine dependence, unspecified, uncomplicated
CPT/HCPCS: 36415; 80053; 81003; 81025; 82270; 83690; 85025; 85610; 96365; 96375; 99283; J0696; J2270; J2405; Z7610

== ENCOUNTER 2019-04-19 03:20 | Inpatient (IN) | payer OTHER ==
[~2019-04-19] VITALS: Ht 165.1 cm; Wt 59.9 kg
[2019-04-19] VITALS (7 sets, daily range): BP systolic 127–199; BP diastolic 42–149
[2019-04-19] MEDS ORDERED: SODIUM CHLORIDE 0.9% 1,000 ML IV ONE (03:46)
[2019-04-19] MEDS ORDERED: MORPHINE SULFATE 4 MG/ML CPJ (NOT FOR IM USE) IV STA (03:46)
[2019-04-19] MEDS ORDERED: ONDANSETRON HCL 4MG/2ML INJ IV STA (03:46)
[2019-04-19 03:58] LABS: COLOR URINE YELLOW (YELLOW); KETONES URINE TRACE (NEGATIVE); LEUKOCYTE ESTERASE URINE NEGATIVE (NEGATIVE); NITRITE URINE NEGATIVE (NEGATIVE); OCCULT BLOOD URINE NEGATIVE (NEGATIVE); PH URINE 7.5 (4.5-8.0); PROTEIN URINE NEGATIVE (NEGATIVE); SPECIFIC GRAVITY URINE 1.013 (1.005-1.030); UROBILINOGEN URINE 0.2 E.U./dL (0.2-1.0)
[2019-04-19] MEDS ORDERED: HALOPERIDOL LACTATE 5MG/ML VIAL IM ONE (04:00)
[2019-04-19 04:04] LABS: CLARITY URINE CLOUDY (CLEAR)
[2019-04-19 04:14] LABS: BASOPHILS % 0.3 % (0.0-2.0); EOSINOPHILS % 1.4 % (0.0-5.0); HEMATOCRIT. 38.6 % (36.0-48.0); LYMPHOCYTES % 15.8 % (20.0-50.0); MEAN CORPUSCULAR HEMOGLOBIN 30.1 pg (28.0-32.0); MEAN CORPUSCULAR VOLUME 89.5 fL (81.0-99.0); MEAN PLATELET VOLUME 8.6 fl (7.4-10.4); NEUTROPHILS % 77.5 % (40.0-76.0); PLATELET 264 x1000/uL (130-400); RED BLOOD CELL COUNT 4.31 mill/uL (4.2-5.4); RED CELL DISTRIBUTION WIDTH 18.1 % (11.6-14.6)
[2019-04-19 04:21] LABS: CHLORIDE 106 mEq/L (98-107)
[2019-04-19 04:23] LABS: PROTHROMBIN TIME 10.7 sec (9.6-11.0)
[2019-04-19 04:34] LABS: HCG SCREEN NEGATIVE
[2019-04-19] MEDS ORDERED: IOHEXOL-300 100 ML BOTTLE ONE (05:59)
[2019-04-19] MEDS ORDERED: MORPHINE SULFATE 2 MG/ML CPJ (NOT FOR IM USE) IV ONE (06:15)
[2019-04-19] MEDS ORDERED: ONDANSETRON HCL 4MG/2ML INJ IV PRN (08:45)
[2019-04-19] MEDS ORDERED: DOCUSATE SODIUM 100MG CAPSULE PO PRN (08:45)
[2019-04-19] MEDS ORDERED: IPRATROPIUM/ALBUTEROL 0.5-3(2.5)MG/3ML NEB HHN PRN (08:45)
[2019-04-19] MEDS ORDERED: POTASSIUM CHLORIDE 20MEQ TABLET SR PO SCH (08:45)
[2019-04-19] MEDS ORDERED: ACETAMINOPHEN 325MG TABLET PO PRN (08:45)
[2019-04-19] MEDS ORDERED: LORAZEPAM 0.5MG TABLET PO PRN (08:45)
[2019-04-19] MEDS: CLONIDINE 0.1MG TABLET PO PRN (11:43)
[2019-04-19] MEDS ORDERED: MORPHINE SULFATE 2 MG/ML CPJ (NOT FOR IM USE) IV SCH (12:30)
[2019-04-19] MEDS: PANTOPRAZOLE 40MG DR TABLET PO SCH ×2 (13:56→17:00)
[2019-04-19] MEDS: METOCLOPRAMIDE HCL 10MG/2ML VIAL IV SCH ×3 (13:56→23:55)
[2019-04-19] MEDS: SUCRALFATE 1G TABLET PO SCH ×3 (13:56→21:00)
[2019-04-19] MEDS: AMLODIPINE 5MG TABLET PO SCH (14:01)
[2019-04-19 15:30] LABS: *AMPHETAMINES SCREEN URINE NEGATIVE (NEGATIVE)
[2019-04-19 15:31] LABS: *BARBITURATES SCREEN URINE NEGATIVE (NEGATIVE); *BENZODIAZEPINES SCREEN URINE NEGATIVE (NEGATIVE); *COCAINE SCREEN URINE NEGATIVE (NEGATIVE); METHADONE URINE SCREEN NEGATIVE (NEGATIVE)
[2019-04-19 15:32] LABS: PHENCYCLIDINE URINE SCREEN NEGATIVE (NEGATIVE)
[2019-04-19 15:41] LABS: CANNABINOID URINE SCREEN PRESUMTIVE POSITIVE (NEGATIVE); OPIATES URINE SCREEN PRESUMTIVE POSITIVE (NEGATIVE)
[2019-04-19] MEDS: ONDANSETRON HCL 4MG/2ML INJ IV SCH ×2 (18:33→23:55)
[2019-04-19] MEDS: HYDROCODONE/ACETAMINOPHEN 5/325MG TABLET PO PRN (20:17)
[2019-04-19] MEDS ORDERED: DEXTROSE 50% WATER 50ML SYRINGE IV PRN (20:30)
[2019-04-19] MEDS: INSULIN LISPRO 100 UNITS/ML SUBCUT SCH (21:00)
[2019-04-19] MEDS: BLOOD SUGAR DIAGNOSTIC STRIP TEST SCH (21:00)
[2019-04-20] VITALS (7 sets, daily range): BP systolic 105–165; BP diastolic 72–100
[2019-04-20] MEDS: MORPHINE SULFATE 2 MG/ML CPJ (NOT FOR IM USE) IV PRN ×4 (01:13→21:40)
[2019-04-20 06:17] LABS: BASOPHILS % 0.1 % (0.0-2.0); EOSINOPHILS % 0.3 % (0.0-5.0); HEMATOCRIT. 42.4 % (36.0-48.0); HEMOGLOBIN. 14.3 g/dL (12.0-16.0); LYMPHOCYTES % 13.6 % (20.0-50.0); MEAN CORPUSCULAR HEMOGLOBIN 29.8 pg (28.0-32.0); MEAN CORPUSCULAR VOLUME 88.6 fL (81.0-99.0); MONOCYTES % 9.2 % (2.0-8.0); NEUTROPHILS % 76.8 % (40.0-76.0); PLATELET 291 x1000/uL (130-400); RED BLOOD CELL COUNT 4.78 mill/uL (4.2-5.4); RED CELL DISTRIBUTION WIDTH 18.4 % (11.6-14.6)
[2019-04-20] MEDS: ONDANSETRON HCL 4MG/2ML INJ IV SCH (06:38)
[2019-04-20] MEDS: METOCLOPRAMIDE HCL 10MG/2ML VIAL IV SCH ×3 (06:38→17:05)
[2019-04-20] MEDS: SUCRALFATE 1G TABLET PO SCH ×4 (06:47→21:39)
[2019-04-20] MEDS: BLOOD SUGAR DIAGNOSTIC STRIP TEST SCH ×3 (06:47→17:16)
[2019-04-20] MEDS: INSULIN LISPRO 100 UNITS/ML SUBCUT SCH ×3 (06:48→17:16)
[2019-04-20] MEDS: CLONIDINE 0.1MG TABLET PO PRN (06:51)
[2019-04-20 07:09] LABS: CHLORIDE 101 mEq/L (98-107)
[2019-04-20] MEDS: PANTOPRAZOLE 40MG DR TABLET PO SCH ×2 (08:28→17:05)
[2019-04-20] MEDS: AMLODIPINE 5MG TABLET PO SCH (08:29)
[2019-04-20] MEDS ORDERED: ONDANSETRON HCL 4MG/2ML INJ IV PRN ×2 (13:45→14:15)
[2019-04-20] MEDS ORDERED: METOCLOPRAMIDE HCL 10MG/2ML VIAL IV PRN (21:00)
[2019-04-21] MEDS ORDERED: KEPP500 MT (02:24)
[2019-04-21 04:00] VITALS: BP 107/70
[2019-04-21] MEDS: MORPHINE SULFATE 2 MG/ML CPJ (NOT FOR IM USE) IV PRN ×3 (05:31→17:49)
[2019-04-21] MEDS: ONDANSETRON HCL 4MG/2ML INJ IV PRN ×2 (05:34→13:54)
[2019-04-21] MEDS: SUCRALFATE 1G TABLET PO SCH ×4 (06:34→21:22)
[2019-04-21 06:54] LABS: BASOPHILS % 0.2 % (0.0-2.0); EOSINOPHILS % 1.5 % (0.0-5.0); HEMATOCRIT. 43.2 % (36.0-48.0); HEMOGLOBIN. 14.3 g/dL (12.0-16.0); LYMPHOCYTES % 21.9 % (20.0-50.0); MEAN CORPUSCULAR VOLUME 90.7 fL (81.0-99.0); MEAN PLATELET VOLUME 8.6 fl (7.4-10.4); MONOCYTES % 13.8 % (2.0-8.0); NEUTROPHILS % 62.6 % (40.0-76.0); PLATELET 241 x1000/uL (130-400); RED BLOOD CELL COUNT 4.76 mill/uL (4.2-5.4); RED CELL DISTRIBUTION WIDTH 18.3 % (11.6-14.6)
[2019-04-21 07:18] LABS: CHLORIDE 100 mEq/L (98-107)
[2019-04-21 08:00] VITALS: BP 95/68
[2019-04-21] MEDS: PANTOPRAZOLE 40MG DR TABLET PO SCH ×2 (08:48→17:49)
[2019-04-21] MEDS: AMLODIPINE 5MG TABLET PO SCH (08:52)
[2019-04-21] MEDS ORDERED: POTASSIUM CHLORIDE 20MEQ TABLET SR PO NR (09:45)
[2019-04-21] MEDS: LEVETIRACETAM 500MG TABLET PO SCH ×2 (11:39→21:22)
[2019-04-21] MEDS: NICOTINE 21MG PATCH TD SCH (11:40)
[2019-04-21 12:00] VITALS: BP 100/66
[2019-04-21] MEDS: METOCLOPRAMIDE HCL 10MG/2ML VIAL IV SCH ×2 (13:00→18:27)
[2019-04-21] MEDS: CYCLOBENZAPRINE 10MG TABLET PO SCH ×2 (13:49→21:22)
[2019-04-21 16:00] VITALS: BP 97/71
[2019-04-21 20:00] VITALS: BP 97/64
[2019-04-22] VITALS: BP 93/58
[2019-04-22] MEDS: MORPHINE SULFATE 2 MG/ML CPJ (NOT FOR IM USE) IV PRN ×4 (00:18→18:30)
[2019-04-22] MEDS: ZOLPIDEM TARTRATE 5MG TABLET PO PRN (01:04)
[2019-04-22] MEDS: METOCLOPRAMIDE HCL 10MG/2ML VIAL IV SCH ×4 (01:04→18:23)
[2019-04-22 04:00] VITALS: BP 93/57
[2019-04-22] MEDS: CYCLOBENZAPRINE 10MG TABLET PO SCH ×4 (05:24→22:00)
[2019-04-22] MEDS: SUCRALFATE 1G TABLET PO SCH ×4 (06:23→21:56)
[2019-04-22 08:00] VITALS: BP 92/60
[2019-04-22 08:12] LABS: BASOPHILS % 0.3 % (0.0-2.0); EOSINOPHILS % 3.1 % (0.0-5.0); HEMATOCRIT. 40.1 % (36.0-48.0); HEMOGLOBIN. 13.3 g/dL (12.0-16.0); LYMPHOCYTES % 25.5 % (20.0-50.0); MEAN CORPUSCULAR HEMOGLOBIN 29.9 pg (28.0-32.0); MEAN CORPUSCULAR VOLUME 90.3 fL (81.0-99.0); MEAN PLATELET VOLUME 8.2 fl (7.4-10.4); NEUTROPHILS % 57.1 % (40.0-76.0); PLATELET 259 x1000/uL (130-400); RED BLOOD CELL COUNT 4.44 mill/uL (4.2-5.4); RED CELL DISTRIBUTION WIDTH 18.2 % (11.6-14.6)
[2019-04-22 08:35] LABS: CHLORIDE 104 mEq/L (98-107)
[2019-04-22] MEDS: PANTOPRAZOLE 40MG DR TABLET PO SCH ×2 (08:57→18:23)
[2019-04-22] MEDS: LEVETIRACETAM 500MG TABLET PO SCH ×2 (08:57→21:56)
[2019-04-22] MEDS: NICOTINE 21MG PATCH TD SCH (08:58)
[2019-04-22] MEDS: AMLODIPINE 5MG TABLET PO SCH (08:58)
[2019-04-22] MEDS: HYDROCODONE/ACETAMINOPHEN 5/325MG TABLET PO PRN ×2 (09:08→23:00)
[2019-04-22 12:00] VITALS: BP 109/62
[2019-04-22 16:00] VITALS: BP 94/54
[2019-04-22 20:00] VITALS: BP 96/59
[2019-04-23] VITALS: BP 100/65
[2019-04-23] MEDS: ZOLPIDEM TARTRATE 5MG TABLET PO PRN (00:42)
[2019-04-23] MEDS: METOCLOPRAMIDE HCL 10MG/2ML VIAL IV SCH ×3 (01:00→12:31)
[2019-04-23 04:00] VITALS: BP 97/65
[2019-04-23] MEDS: MORPHINE SULFATE 2 MG/ML CPJ (NOT FOR IM USE) IV PRN ×2 (04:31→12:32)
[2019-04-23] MEDS: CYCLOBENZAPRINE 10MG TABLET PO SCH ×2 (06:00→14:00)
[2019-04-23] MEDS: SUCRALFATE 1G TABLET PO SCH ×2 (06:43→12:31)
[2019-04-23 08:00] VITALS: BP 97/63
[2019-04-23] MEDS: AMLODIPINE 5MG TABLET PO SCH (09:00)
[2019-04-23] MEDS: PANTOPRAZOLE 40MG DR TABLET PO SCH (09:55)
[2019-04-23] MEDS: HYDROCODONE/ACETAMINOPHEN 5/325MG TABLET PO PRN ×2 (09:55→14:41)
[2019-04-23] MEDS: NICOTINE 21MG PATCH TD SCH (09:55)
[2019-04-23] MEDS: LEVETIRACETAM 500MG TABLET PO SCH (09:55)
[2019-04-23 12:00] VITALS: BP 113/77
[2019-04-23 15:08] VITALS: BP 113/78
[2019-04-25 10:11] LABS: SACCHAROMYCES CEREVISIAE IGG <20.0 Units (0.0-24.9); SACCHAROMYCES CEREVISIAE IGM <20.0 Units (0.0-24.9)
[2019-04-25 15:06] LABS: ATYPICAL pANCA <1:20 titer (Neg:<1:20)
== END 2019-04-23 15:14 | disposition home or self-care (01) | DRG 249 ==
LOC: ER 03:20 → 6EST 06:03 → EDBEDREQTM 06:04 → EDBEDREQ 06:04 → ENRESERV 07:01
PROVIDERS: ADMIT Internal Medicine; ATTEND Internal Medicine
DX: K52.9 Noninfective gastroenteritis and colitis, unspecified (principal); F11.20 Opioid dependence, uncomplicated; N28.1 Cyst of kidney, acquired; A59.9 Trichomoniasis, unspecified; F12.90 Cannabis use, unspecified, uncomplicated; E11.9 Type 2 diabetes mellitus without complications; G40.909 Epilepsy, unspecified, not intractable, without status epilepticus; I16.0 Hypertensive urgency; K29.70 Gastritis, unspecified, without bleeding; R00.1 Bradycardia, unspecified; M48.061 Spinal stenosis, lumbar region without neurogenic claudication; I10 Essential (primary) hypertension; Z82.49 Family history of ischemic heart disease and other diseases of the circulatory system; Z87.11 Personal history of peptic ulcer disease; Z87.442 Personal history of urinary calculi; N83.202 Unspecified ovarian cyst, left side; N83.201 Unspecified ovarian cyst, right side; G89.4 Chronic pain syndrome; Z76.5 Malingerer [conscious simulation]; Z79.84 Long term (current) use of oral hypoglycemic drugs
CPT/HCPCS: 36415; 74177; 76830; 76856; 80048; 80305; 81003; 82962; 84703; 86256; 86671; 96374; 97110; 97116; 97162; 99285; C1893; J1630; J2270; J2405; J2765; J7030; Q9967

== ENCOUNTER 2019-06-02 20:05 | Emergency (ER) | payer OTHER ==
[~2019-06-02] VITALS: Ht 165.1 cm; Wt 61.0 kg
[~2019-06-02 20:05] MED LIST changes: +KEPP500 MT
[2019-06-02] MEDS ORDERED: KETOROLAC 30MG/ML VIAL IV STA (22:30)
[2019-06-02] MEDS ORDERED: ONDANSETRON HCL 4MG/2ML INJ IV STA (22:30)
[2019-06-02] MEDS ORDERED: SODIUM CHLORIDE 0.9% 1,000 ML IV ONE (22:30)
[2019-06-02] MEDS ORDERED: DIAZEPAM 5 MG TABLET PO ONE (22:30)
[2019-06-02 22:49] LABS: BASOPHILS % 0.6 % (0.0-2.0); EOSINOPHILS % 2.8 % (0.0-5.0); HEMATOCRIT. 35.8 % (36.0-48.0); MEAN CORPUSCULAR HEMOGLOBIN 30.5 pg (28.0-32.0); MEAN CORPUSCULAR VOLUME 90.6 fL (81.0-99.0); MEAN PLATELET VOLUME 8.5 fl (7.4-10.4); MONOCYTES % 8.7 % (2.0-8.0); NEUTROPHILS % 56.9 % (40.0-76.0); PLATELET 290 x1000/uL (130-400); RED BLOOD CELL COUNT 3.95 mill/uL (4.2-5.4); RED CELL DISTRIBUTION WIDTH 15.5 % (11.6-14.6)
[2019-06-02 22:53] LABS: CHLORIDE 105 mEq/L (98-107)
[2019-06-02 23:34] LABS: CLARITY URINE CLOUDY (CLEAR); COLOR URINE YELLOW (YELLOW); KETONES URINE TRACE (NEGATIVE); LEUKOCYTE ESTERASE URINE NEGATIVE (NEGATIVE); NITRITE URINE NEGATIVE (NEGATIVE); OCCULT BLOOD URINE NEGATIVE (NEGATIVE); PH URINE 6.5 (4.5-8.0); PROTEIN URINE TRACE (NEGATIVE); SPECIFIC GRAVITY URINE 1.033 (1.005-1.030)
[2019-06-03] MEDS ORDERED: KETOROLAC 15MG/ML VIAL IV NR (00:15)
[2019-06-03 00:25] VITALS: BP 130/77
[2019-06-03] MEDS ORDERED: MORPHINE SULFATE 2 MG/ML CPJ (NOT FOR IM USE) IV ONE (00:30)
== END 2019-06-03 08:39 | disposition home or self-care (01) ==
LOC: ER 06-03 08:31
DX: G89.29 Other chronic pain (principal); M54.5 Low back pain; M25.561 Pain in right knee; K62.5 Hemorrhage of anus and rectum; E11.9 Type 2 diabetes mellitus without complications; I10 Essential (primary) hypertension; F12.10 Cannabis abuse, uncomplicated; F17.200 Nicotine dependence, unspecified, uncomplicated; Z79.899 Other long term (current) drug therapy; Z87.442 Personal history of urinary calculi
CPT/HCPCS: 29530; 36415; 80053; 81003; 81025; 85025; 96374; 96375; 99283; J1885; J2270; J2405; J7030; Z7610

== ENCOUNTER 2019-07-08 15:21 | Emergency (ER) | payer OTHER ==
[~2019-07-08] VITALS: Ht 170.2 cm; Wt 70.0 kg
[2019-07-08] MEDS ORDERED: ONDANSETRON HCL 4MG/2ML INJ IV STA (16:19)
[2019-07-08] MEDS ORDERED: SODIUM CHLORIDE 0.9% 1,000 ML IV ONE (16:19)
[2019-07-08] MEDS ORDERED: LEVETIRACETAM 1000MG/100ML 100 ML IV ONE (16:30)
[2019-07-08 16:32] LABS: CHLORIDE 104 mEq/L (98-107)
[2019-07-08 16:36] LABS: ETHANOL BLOOD < 10 mg/dL
[2019-07-08 16:38] LABS: BASOPHILS % 0.4 % (0.0-2.0); EOSINOPHILS % 0.3 % (0.0-5.0); HEMATOCRIT. 38.9 % (36.0-48.0); HEMOGLOBIN. 13.1 g/dL (12.0-16.0); LYMPHOCYTES % 10.1 % (20.0-50.0); MEAN CORPUSCULAR HEMOGLOBIN 30.2 pg (28.0-32.0); MEAN CORPUSCULAR VOLUME 89.5 fL (81.0-99.0); MEAN PLATELET VOLUME 9.5 fl (7.4-10.4); MONOCYTES % 3.3 % (2.0-8.0); NEUTROPHILS % 85.9 % (40.0-76.0); PLATELET 308 x1000/uL (130-400); RED BLOOD CELL COUNT 4.35 mill/uL (4.2-5.4); RED CELL DISTRIBUTION WIDTH 15.8 % (11.6-14.6)
[2019-07-08 16:39] LABS: CLARITY URINE CLEAR (CLEAR); COLOR URINE YELLOW (YELLOW); KETONES URINE 4+ (NEGATIVE); LEUKOCYTE ESTERASE URINE NEGATIVE (NEGATIVE); NITRITE URINE NEGATIVE (NEGATIVE); OCCULT BLOOD URINE 1+ (NEGATIVE); PH URINE 6.5 (4.5-8.0); PROTEIN URINE 1+ (NEGATIVE); SPECIFIC GRAVITY URINE 1.023 (1.005-1.030); UROBILINOGEN URINE 0.2 E.U./dL (0.2-1.0)
[2019-07-08 16:50] LABS: *BENZODIAZEPINES SCREEN URINE NEGATIVE (NEGATIVE)
[2019-07-08 16:51] LABS: *AMPHETAMINES SCREEN URINE NEGATIVE (NEGATIVE); METHADONE URINE SCREEN NEGATIVE (NEGATIVE); PHENCYCLIDINE URINE SCREEN NEGATIVE (NEGATIVE)
[2019-07-08 16:52] LABS: *BARBITURATES SCREEN URINE NEGATIVE (NEGATIVE)
[2019-07-08 16:56] LABS: *COCAINE SCREEN URINE PRESUMTIVE POSITIVE (NEGATIVE)
[2019-07-08 16:57] LABS: CANNABINOID URINE SCREEN PRESUMTIVE POSITIVE (NEGATIVE); OPIATES URINE SCREEN PRESUMTIVE POSITIVE (NEGATIVE)
[2019-07-08 17:27] VITALS: BP 155/98
[2019-07-08] MEDS ORDERED: ACETAMINOPHEN 650MG/20.3ML UDC PO ONE (17:45)
== END 2019-07-08 18:46 | disposition home or self-care (01) ==
LOC: ER 15:21
DX: K31.84 Gastroparesis (principal); R10.30 Lower abdominal pain, unspecified; Z79.899 Other long term (current) drug therapy
CPT/HCPCS: 36415; 74018; 80053; 80305; 80320; 81003; 83690; 83880; 85025; 96374; 96375; 99284; J1953; J2405; J7030; G0480

== ENCOUNTER 2019-09-03 13:13 | Emergency (ER) | payer OTHER ==
[~2019-09-03] VITALS: Ht 160 cm; Wt 70.0 kg
[~2019-09-03 13:13] MED LIST changes: -CARI-166 PO; +CARI350T28 PO
[2019-09-03] MEDS ORDERED: SODIUM CHLORIDE 0.9% 1,000 ML IV ONE (18:07)
[2019-09-03] MEDS ORDERED: ONDANSETRON HCL 4MG/2ML INJ IV STA (18:07)
[2019-09-03] MEDS ORDERED: KETOROLAC 30MG/ML VIAL IV ONE (19:15)
[2019-09-03] MEDS ORDERED: METHOCARBAMOL 750MG TABLET PO ONE (19:15)
[2019-09-03 19:29] LABS: BASOPHILS % 0.6 % (0.0-2.0); EOSINOPHILS % 0.1 % (0.0-5.0); HEMATOCRIT. 43.7 % (36.0-48.0); HEMOGLOBIN. 14.3 g/dL (12.0-16.0); LYMPHOCYTES % 8.9 % (20.0-50.0); MEAN CORPUSCULAR HEMOGLOBIN 28.9 pg (28.0-32.0); MEAN PLATELET VOLUME 8.8 fl (7.4-10.4); MONOCYTES % 3.9 % (2.0-8.0); NEUTROPHILS % 86.5 % (40.0-76.0); PLATELET 373 x1000/uL (130-400); RED BLOOD CELL COUNT 4.96 mill/uL (4.2-5.4); RED CELL DISTRIBUTION WIDTH 15.9 % (11.6-14.6)
[2019-09-03 19:31] LABS: CLARITY URINE CLOUDY (CLEAR); COLOR URINE DARK YELLOW (YELLOW); KETONES URINE TRACE (NEGATIVE); LEUKOCYTE ESTERASE URINE NEGATIVE (NEGATIVE); NITRITE URINE POSITIVE (NEGATIVE); OCCULT BLOOD URINE 3+ (NEGATIVE); PH URINE 5.5 (4.5-8.0); PROTEIN URINE 2+ (NEGATIVE); SPECIFIC GRAVITY URINE 1.032 (1.005-1.030)
[2019-09-03 19:36] LABS: CHLORIDE 102 mEq/L (98-107); INR 1.1; PROTHROMBIN TIME 10.8 sec (9.6-11.0)
[2019-09-03 21:50] VITALS: BP 157/89
== END 2019-09-03 21:50 | disposition home or self-care (01) ==
LOC: ER 13:13
DX: N39.0 Urinary tract infection, site not specified (principal); F17.210 Nicotine dependence, cigarettes, uncomplicated; Z71.6 Tobacco abuse counseling; I10 Essential (primary) hypertension
CPT/HCPCS: 36415; 80053; 81003; 81025; 83690; 84484; 85025; 85610; 93005; 96361; 96374; 96375; 99284; 99406; J1885; J2405; J7030

== ENCOUNTER 2020-01-14 07:41 | Emergency (ER) | payer OTHER ==
[~2020-01-14] VITALS: Ht 165.1 cm; Wt 59.0 kg
[2020-01-14] MEDS ORDERED: ONDANSETRON HCL 4MG/2ML INJ IV STA (07:57)
[2020-01-14] MEDS ORDERED: SODIUM CHLORIDE 0.9% 1,000 ML IV ONE (07:57)
[2020-01-14] MEDS ORDERED: MORPHINE SULFATE 4 MG/ML CPJ (NOT FOR IM USE) IV STA (07:57)
[2020-01-14 08:21] LABS: BASOPHILS % 0.5 % (0.0-2.0); EOSINOPHILS % 2.2 % (0.0-5.0); HEMATOCRIT. 40.6 % (36.0-48.0); HEMOGLOBIN. 13.6 g/dL (12.0-16.0); LYMPHOCYTES % 16.2 % (20.0-50.0); MEAN CORPUSCULAR VOLUME 92.6 fL (81.0-99.0); MEAN PLATELET VOLUME 8.4 fl (7.4-10.4); MONOCYTES % 5.4 % (2.0-8.0); NEUTROPHILS % 75.7 % (40.0-76.0); PLATELET 318 x1000/uL (130-400); RED BLOOD CELL COUNT 4.38 mill/uL (4.2-5.4); RED CELL DISTRIBUTION WIDTH 16.1 % (11.6-14.6)
[2020-01-14 08:24] LABS: CHLORIDE 109 mEq/L (98-107)
[2020-01-14 08:44] LABS: HCG SCREEN NEGATIVE
[2020-01-14] MEDS ORDERED: MORPHINE SULFATE 4 MG/ML CPJ (NOT FOR IM USE) IV ONE (09:30)
[2020-01-14] MEDS ORDERED: METOCLOPRAMIDE HCL 10MG/2ML VIAL IV ONE (12:45)
[2020-01-14] MEDS ORDERED: MORPHINE SULFATE 2 MG/ML CPJ (NOT FOR IM USE) IV ONE (12:45)
[2020-01-14 13:20] VITALS: BP 145/80
== END 2020-01-14 13:34 | disposition short-term general hospital (02) ==
LOC: ER 07:41
DX: M54.5 Low back pain (principal); Z91.81 History of falling; J98.11 Atelectasis; N28.1 Cyst of kidney, acquired; N20.0 Calculus of kidney; I10 Essential (primary) hypertension; E11.9 Type 2 diabetes mellitus without complications
CPT/HCPCS: 36415; 74176; 76830; 76856; 80053; 81025; 83690; 84703; 85025; 96374; 96375; 96376; 99285; J2270; J2405; J2765; J7030

== ENCOUNTER 2020-01-16 09:46 | Emergency (ER) | payer OTHER ==
[~2020-01-16] VITALS: Ht 165.1 cm; Wt 65.0 kg
[2020-01-16] MEDS ORDERED: MORPHINE SULFATE 4 MG/ML CPJ (NOT FOR IM USE) IV NR (10:16)
[2020-01-16] MEDS ORDERED: SODIUM CHLORIDE 0.9% 1,000 ML IV ONE (10:16)
[2020-01-16] MEDS ORDERED: ONDANSETRON HCL 4MG/2ML INJ IV NR (10:16)
[2020-01-16 10:27] LABS: BASOPHILS % 0.3 % (0.0-2.0); EOSINOPHILS % 0.1 % (0.0-5.0); HEMATOCRIT. 42.3 % (36.0-48.0); HEMOGLOBIN. 14.5 g/dL (12.0-16.0); LYMPHOCYTES % 10.2 % (20.0-50.0); MEAN CORPUSCULAR VOLUME 90.7 fL (81.0-99.0); MEAN PLATELET VOLUME 8.4 fl (7.4-10.4); NEUTROPHILS % 85.4 % (40.0-76.0); PLATELET 400 x1000/uL (130-400); RED BLOOD CELL COUNT 4.66 mill/uL (4.2-5.4); RED CELL DISTRIBUTION WIDTH 15.6 % (11.6-14.6)
[2020-01-16 10:30] LABS: CLARITY URINE CLOUDY (CLEAR); COLOR URINE YELLOW (YELLOW); KETONES URINE 3+ (NEGATIVE); LEUKOCYTE ESTERASE URINE NEGATIVE (NEGATIVE); NITRITE URINE NEGATIVE (NEGATIVE); OCCULT BLOOD URINE 1+ (NEGATIVE); PH URINE 5.5 (4.5-8.0); PROTEIN URINE 2+ (NEGATIVE); SPECIFIC GRAVITY URINE 1.025 (1.005-1.030)
[2020-01-16 10:38] LABS: CHLORIDE 99 mEq/L (98-107)
[2020-01-16] MEDS ORDERED: MORPHINE SULFATE 4 MG/ML CPJ (NOT FOR IM USE) IV ONE (12:00)
[2020-01-16] MEDS ORDERED: IOHEXOL-300 100 ML BOTTLE ONE (12:35)
[2020-01-16] MEDS ORDERED: CLONIDINE 0.1MG TABLET PO PRN (16:00)
[2020-01-16] MEDS ORDERED: MORPHINE SULFATE 2 MG/ML CPJ (NOT FOR IM USE) IV PRN (16:00)
[2020-01-16] MEDS ORDERED: ONDANSETRON HCL 4MG/2ML INJ IV ONE (16:45)
[2020-01-16] MEDS ORDERED: CLONIDINE 0.1MG TABLET PO ONE (17:15)
[2020-01-16 17:30] VITALS: BP 179/59
== END 2020-01-16 17:40 | disposition short-term general hospital (02) ==
LOC: ER 09:46 → CANBEDREQ 15:50 → ER 17:40
DX: R10.9 Unspecified abdominal pain (principal); R11.2 Nausea with vomiting, unspecified; I10 Essential (primary) hypertension; K21.9 Gastro-esophageal reflux disease without esophagitis; Z79.899 Other long term (current) drug therapy
CPT/HCPCS: 36415; 74177; 76830; 76856; 80053; 81003; 81025; 83690; 85025; 96361; 96374; 96375; 96376; 99285; J2270; J2405; Q9967

== ENCOUNTER 2020-01-29 05:50 | Emergency (ER) | payer OTHER ==
[~2020-01-29] VITALS: Ht 167.6 cm; Wt 54.0 kg
[2020-01-29] MEDS ORDERED: KETOROLAC 30MG/ML VIAL IV STA (06:55)
[2020-01-29] MEDS ORDERED: SODIUM CHLORIDE 0.9% 1,000 ML IV ONE (06:55)
[2020-01-29 07:28] LABS: CLARITY URINE CLEAR (CLEAR); COLOR URINE YELLOW (YELLOW); KETONES URINE 1+ (NEGATIVE); LEUKOCYTE ESTERASE URINE NEGATIVE (NEGATIVE); NITRITE URINE NEGATIVE (NEGATIVE); OCCULT BLOOD URINE TRACE (NEGATIVE); PROTEIN URINE 1+ (NEGATIVE); SPECIFIC GRAVITY URINE 1.017 (1.005-1.030); UROBILINOGEN URINE 0.2 E.U./dL (0.2-1.0)
[2020-01-29] MEDS ORDERED: MORPHINE SULFATE 4 MG/ML CPJ (NOT FOR IM USE) IV ONE ×3 (09:00→14:45)
[2020-01-29] MEDS ORDERED: ONDANSETRON HCL 4MG/2ML INJ IV ONE ×4 (09:15→14:45)
[2020-01-29 09:18] LABS: BASOPHILS % 0.7 % (0.0-2.0); LYMPHOCYTES % 11.6 % (20.0-50.0); MEAN CORPUSCULAR HEMOGLOBIN 31.4 pg (28.0-32.0); MEAN CORPUSCULAR VOLUME 91.9 fL (81.0-99.0); MEAN PLATELET VOLUME 8.2 fl (7.4-10.4); MONOCYTES % 2.4 % (2.0-8.0); NEUTROPHILS % 85.3 % (40.0-76.0); PLATELET 340 x1000/uL (130-400); RED BLOOD CELL COUNT 4.13 mill/uL (4.2-5.4); RED CELL DISTRIBUTION WIDTH 15.8 % (11.6-14.6)
[2020-01-29 09:32] LABS: CHLORIDE 107 mEq/L (98-107)
[2020-01-29 09:33] LABS: HCG SCREEN NEGATIVE
[2020-01-29] MEDS ORDERED: POTASSIUM CHLORIDE 20MEQ TABLET SR PO ONE (10:45)
[2020-01-29] MEDS ORDERED: METRONIDAZOLE 500 MG PREMIX 100 ML IV ONE (10:45)
[2020-01-29] MEDS ORDERED: CEFOXITIN SODIUM 2 G in DEXT 5% WATER 100 ML IV STA (11:34)
[2020-01-29] MEDS ORDERED: DOXYCYCLINE 100 MG in DEXT 5% WATER 100 ML IV STA (11:34)
[2020-01-29] MEDS ORDERED: ONDANSETRON HCL 4MG/2ML INJ IV STA (11:35)
[2020-01-29] MEDS ORDERED: MORPHINE SULFATE 4 MG/ML CPJ (NOT FOR IM USE) IV STA (11:35)
[2020-01-29] MEDS ORDERED: CEFTRIAXONE 1 G PREMIX 50 ML IV ONE (11:45)
[2020-01-29] MEDS ORDERED: CEFTRIAXONE 1 G PREMIX 50 ML IV SCH (12:00)
[2020-01-29] MEDS ORDERED: HYDRALAZINE 20MG/ML VIAL IV ONE ×2 (12:00→13:45)
[2020-01-29 14:12] VITALS: BP 157/99
[2020-01-30 08:00] LABS: *BARBITURATES SCREEN URINE NEGATIVE (NEGATIVE)
[2020-01-30 08:01] LABS: *AMPHETAMINES SCREEN URINE NEGATIVE (NEGATIVE); *BENZODIAZEPINES SCREEN URINE NEGATIVE (NEGATIVE); *COCAINE SCREEN URINE NEGATIVE (NEGATIVE); METHADONE URINE SCREEN NEGATIVE (NEGATIVE); PHENCYCLIDINE URINE SCREEN NEGATIVE (NEGATIVE)
[2020-01-30 08:04] LABS: CANNABINOID URINE SCREEN PRESUMTIVE POSITIVE (NEGATIVE); OPIATES URINE SCREEN PRESUMTIVE POSITIVE (NEGATIVE)
[2020-01-31 04:11] LABS: NEISSERIA GONORRHOEAE NAA Negative (Negative)
== END 2020-01-29 14:36 | disposition short-term general hospital (02) ==
LOC: ER 05:50
DX: N70.11 Chronic salpingitis (principal); N73.9 Female pelvic inflammatory disease, unspecified; I16.0 Hypertensive urgency; A59.01 Trichomonal vulvovaginitis; N76.0 Acute vaginitis; I10 Essential (primary) hypertension; D25.9 Leiomyoma of uterus, unspecified; N20.0 Calculus of kidney
CPT/HCPCS: 36415; 71045; 74176; 76830; 76856; 80053; 80305; 81003; 81025; 83690; 84703; 85025; 87210; 87491; 87591; 96365; 96366; 96368; 96375; 96376; 99285; J0360; J0696; J1885; J2270; J2405; J3490; J7030; J7060; J0694

== ENCOUNTER 2020-02-17 22:35 | Emergency (ER) | payer OTHER ==
[~2020-02-17] VITALS: Ht 167.6 cm; Wt 59.0 kg
[2020-02-17] MEDS ORDERED: KETOROLAC 60MG/2ML VIAL IM STA (23:54)
[2020-02-17] MEDS ORDERED: ONDANSETRON 4MG ODT PO STA (23:54)
[2020-02-18 00:46] LABS: BASOPHILS % 0.5 % (0.0-2.0); EOSINOPHILS % 0.2 % (0.0-5.0); HEMATOCRIT. 40.3 % (36.0-48.0); HEMOGLOBIN. 13.6 g/dL (12.0-16.0); LYMPHOCYTES % 19.1 % (20.0-50.0); MEAN CORPUSCULAR HEMOGLOBIN 30.3 pg (28.0-32.0); MEAN CORPUSCULAR VOLUME 89.7 fL (81.0-99.0); MEAN PLATELET VOLUME 8.7 fl (7.4-10.4); MONOCYTES % 11.2 % (2.0-8.0); PLATELET 317 x1000/uL (130-400); RED BLOOD CELL COUNT 4.49 mill/uL (4.2-5.4); RED CELL DISTRIBUTION WIDTH 14.6 % (11.6-14.6)
[2020-02-18 00:57] LABS: CHLORIDE 101 mEq/L (98-107)
[2020-02-18] MEDS ORDERED: ACETAMINOPHEN 500MG TABLET PO ONE (02:45)
[2020-02-18 02:54] VITALS: BP 142/95
[2020-02-18 03:35] LABS: CLARITY URINE CLOUDY (CLEAR); COLOR URINE DARK YELLOW (YELLOW); KETONES URINE 4+ (NEGATIVE); LEUKOCYTE ESTERASE URINE 1+ (NEGATIVE); NITRITE URINE NEGATIVE (NEGATIVE); OCCULT BLOOD URINE 3+ (NEGATIVE); PROTEIN URINE 3+ (NEGATIVE); SPECIFIC GRAVITY URINE 1.043 (1.005-1.030)
== END 2020-02-18 03:09 | disposition home or self-care (01) ==
LOC: ER 22:35
DX: G89.29 Other chronic pain (principal); R10.9 Unspecified abdominal pain; R53.1 Weakness; F12.90 Cannabis use, unspecified, uncomplicated; I10 Essential (primary) hypertension
CPT/HCPCS: 36415; 74176; 80053; 81003; 81025; 83605; 83690; 84484; 85025; 93005; 96372; 99285; J1885; Q0162

== ENCOUNTER 2020-05-10 23:07 | Emergency (ER) | payer OTHER ==
[~2020-05-10] VITALS: Ht 165.1 cm; Wt 64.0 kg
[2020-05-11 00:16] LABS: CLARITY URINE CLOUDY (CLEAR); COLOR URINE YELLOW (YELLOW); KETONES URINE NEGATIVE (NEGATIVE); LEUKOCYTE ESTERASE URINE NEGATIVE (NEGATIVE); NITRITE URINE NEGATIVE (NEGATIVE); OCCULT BLOOD URINE NEGATIVE (NEGATIVE); PROTEIN URINE NEGATIVE (NEGATIVE); SPECIFIC GRAVITY URINE 1.015 (1.005-1.030); UROBILINOGEN URINE 0.2 E.U./dL (0.2-1.0)
[2020-05-11] MEDS ORDERED: ONDANSETRON HCL 4MG/2ML INJ IV STA (01:06)
[2020-05-11] MEDS ORDERED: SODIUM CHLORIDE 0.9% 1,000 ML IV ONE (01:06)
[2020-05-11] MEDS ORDERED: MORPHINE SULFATE 4 MG/ML CPJ (NOT FOR IM USE) IV STA (01:06)
[2020-05-11] MEDS ORDERED: MORPHINE SULFATE 2 MG/ML CPJ (NOT FOR IM USE) IV ONE (01:15)
[2020-05-11] MEDS ORDERED: METOCLOPRAMIDE HCL 10MG/2ML VIAL IV ONE (01:15)
[2020-05-11 01:28] LABS: BASOPHILS % 0.5 % (0.0-2.0); EOSINOPHILS % 0.5 % (0.0-5.0); HEMATOCRIT. 35.3 % (36.0-48.0); HEMOGLOBIN. 11.7 g/dL (12.0-16.0); LYMPHOCYTES % 9.5 % (20.0-50.0); MEAN CORPUSCULAR HEMOGLOBIN 30.1 pg (28.0-32.0); MEAN CORPUSCULAR VOLUME 90.5 fL (81.0-99.0); MEAN PLATELET VOLUME 8.5 fl (7.4-10.4); MONOCYTES % 3.9 % (2.0-8.0); NEUTROPHILS % 85.6 % (40.0-76.0); PLATELET 288 x1000/uL (130-400); RED CELL DISTRIBUTION WIDTH 17.5 % (11.6-14.6)
[2020-05-11 01:32] LABS: CHLORIDE 111 mEq/L (98-107)
[2020-05-11 01:39] LABS: HCG SCREEN NEGATIVE
[2020-05-11] MEDS ORDERED: ONDANSETRON HCL 4MG/2ML INJ IV ONE (03:15)
[2020-05-11] MEDS ORDERED: KETOROLAC 30MG/ML VIAL IV ONE (03:15)
[2020-05-11] MEDS ORDERED: LORAZEPAM 2MG/ML CPJ IV ONE (04:00)
[2020-05-11] MEDS ORDERED: DIPHENHYDRAMINE 50MG/ML VIAL IV ONE (04:00)
[2020-05-11 07:38] VITALS: BP 168/71
== END 2020-05-11 08:48 | disposition home or self-care (01) ==
LOC: ER 23:07
DX: N83.202 Unspecified ovarian cyst, left side (principal); N83.201 Unspecified ovarian cyst, right side; D25.9 Leiomyoma of uterus, unspecified; F12.90 Cannabis use, unspecified, uncomplicated
CPT/HCPCS: 36415; 74176; 76830; 76856; 80053; 81003; 83690; 84703; 85025; 93005; 96361; 96374; 96375; 96376; 99285; J1200; J1885; J2060; J2270; J2405; J7030

== ENCOUNTER 2020-06-10 06:50 | Emergency (ER) | payer OTHER ==
[~2020-06-10] VITALS: Ht 165.1 cm; Wt 59.0 kg
[2020-06-10] MEDS ORDERED: DIPHENHYDRAMINE 50MG/ML VIAL IV ONE (07:30)
[2020-06-10] MEDS ORDERED: SODIUM CHLORIDE 0.9% 1,000 ML IV ONE ×2 (07:30→09:30)
[2020-06-10] MEDS ORDERED: METOCLOPRAMIDE HCL 10MG/2ML VIAL IV STA (07:30)
[2020-06-10] MEDS ORDERED: FAMOTIDINE 20MG/2ML VIAL IV STA (07:30)
[2020-06-10] MEDS ORDERED: KETOROLAC 30MG/ML VIAL IV STA (07:30)
[2020-06-10] MEDS ORDERED: MAGNESIUM/ALUMINUM HYDROXIDE/SIMETHICONE 30ML UDC PO STA (07:30)
[2020-06-10 08:05] LABS: BASOPHILS % 0.3 % (0.0-2.0); EOSINOPHILS % 0.3 % (0.0-5.0); HEMATOCRIT. 36.4 % (36.0-48.0); HEMOGLOBIN. 12.2 g/dL (12.0-16.0); LYMPHOCYTES % 10.8 % (20.0-50.0); MEAN CORPUSCULAR HEMOGLOBIN 30.2 pg (28.0-32.0); MEAN CORPUSCULAR VOLUME 89.9 fL (81.0-99.0); MEAN PLATELET VOLUME 7.9 fl (7.4-10.4); MONOCYTES % 1.8 % (2.0-8.0); NEUTROPHILS % 86.8 % (40.0-76.0); PLATELET 340 x1000/uL (130-400); RED BLOOD CELL COUNT 4.06 mill/uL (4.2-5.4); RED CELL DISTRIBUTION WIDTH 15.5 % (11.6-14.6)
[2020-06-10 08:15] LABS: CHLORIDE 105 mEq/L (98-107)
[2020-06-10 08:18] LABS: ETHANOL BLOOD < 10 mg/dL
[2020-06-10 08:22] LABS: HCG SCREEN NEGATIVE
[2020-06-10 08:43] LABS: CLARITY URINE TURBID (CLEAR); COLOR URINE YELLOW (YELLOW); KETONES URINE TRACE (NEGATIVE); LEUKOCYTE ESTERASE URINE NEGATIVE (NEGATIVE); NITRITE URINE NEGATIVE (NEGATIVE); OCCULT BLOOD URINE NEGATIVE (NEGATIVE); PH URINE 7.5 (4.5-8.0); PROTEIN URINE TRACE (NEGATIVE); SPECIFIC GRAVITY URINE 1.024 (1.005-1.030); UROBILINOGEN URINE 0.2 E.U./dL (0.2-1.0)
[2020-06-10 09:11] LABS: *AMPHETAMINES SCREEN URINE NEGATIVE (NEGATIVE); *BARBITURATES SCREEN URINE NEGATIVE (NEGATIVE); *COCAINE SCREEN URINE NEGATIVE (NEGATIVE)
[2020-06-10 09:12] LABS: *BENZODIAZEPINES SCREEN URINE NEGATIVE (NEGATIVE); METHADONE URINE SCREEN NEGATIVE (NEGATIVE); OPIATES URINE SCREEN PRESUMTIVE POSITIVE (NEGATIVE)
[2020-06-10 09:13] LABS: CANNABINOID URINE SCREEN PRESUMTIVE POSITIVE (NEGATIVE); PHENCYCLIDINE URINE SCREEN NEGATIVE (NEGATIVE)
[2020-06-10] MEDS ORDERED: METOCLOPRAMIDE HCL 10MG/2ML VIAL IV ONE (09:30)
[2020-06-10] MEDS ORDERED: KETOROLAC 15MG/ML VIAL IV ONE (09:30)
[2020-06-10] MEDS ORDERED: DICYCLOMINE HCL 10MG CAPSULE PO ONE (09:30)
[2020-06-10] MEDS ORDERED: CEPHALEXIN 250MG CAPSULE PO ONE (09:30)
[2020-06-10 09:43] LABS: INR 1.1; PROTHROMBIN TIME 11.1 sec (9.6-11.0)
[2020-06-10 11:28] VITALS: BP 197/98
== END 2020-06-10 11:31 | disposition home or self-care (01) ==
LOC: ER 07:29
DX: N39.0 Urinary tract infection, site not specified (principal); D25.9 Leiomyoma of uterus, unspecified; N83.292 Other ovarian cyst, left side; N83.291 Other ovarian cyst, right side; I10 Essential (primary) hypertension; R07.89 Other chest pain
CPT/HCPCS: 36415; 76700; 76830; 76856; 80053; 80305; 80320; 81003; 81025; 83690; 84703; 85025; 85610; 93005; 96361; 96374; 96375; 96376; 99285; J1200; J1885; J2765; J3490; J7030; G0480

== ENCOUNTER 2020-08-27 15:17 | Emergency (ER) | payer OTHER ==
[~2020-08-27] VITALS: Ht 157.5 cm; Wt 65.0 kg
[2020-08-27] MEDS ORDERED: OXYCODONE HCL/ACETAMINOPHEN 5/325MG TABLET PO ONE ×2 (16:30→19:30)
[2020-08-27] MEDS ORDERED: CARISOPRODOL 350 MG TABLET PO ONE ×2 (16:30→19:30)
[2020-08-27 19:43] VITALS: BP 133/92
[2020-08-27] MEDS ORDERED: CARI350T28 PO (19:58)
[2020-08-27] MEDS ORDERED: CARI350T MT (19:58)
== END 2020-08-27 20:20 | disposition home or self-care (01) ==
LOC: ER 15:17
DX: G40.909 Epilepsy, unspecified, not intractable, without status epilepticus (principal); M25.561 Pain in right knee; I10 Essential (primary) hypertension; Z98.890 Other specified postprocedural states
CPT/HCPCS: 73560; 99284

== ENCOUNTER 2020-12-05 15:02 | Emergency (ER) | payer OTHER ==
[~2020-12-05] VITALS: Ht 160 cm; Wt 63.5 kg
[~2020-12-05 15:02] MED LIST changes: -CARI350T28 PO
[2020-12-05] MEDS ORDERED: KETOROLAC 30MG/ML VIAL IV STA (15:39)
[2020-12-05] MEDS ORDERED: SODIUM CHLORIDE 0.9% 1,000 ML IV ONE (15:45)
[2020-12-05 16:09] LABS: BASOPHILS % 0.9 % (0.0-2.0); EOSINOPHILS % 0.4 % (0.0-5.0); HEMATOCRIT. 38.8 % (36.0-48.0); HEMOGLOBIN. 12.9 g/dL (12.0-16.0); LYMPHOCYTES % 9.9 % (20.0-50.0); MEAN CORPUSCULAR HEMOGLOBIN 29.1 pg (28.0-32.0); MEAN CORPUSCULAR VOLUME 87.2 fL (81.0-99.0); MONOCYTES % 3.3 % (2.0-8.0); NEUTROPHILS % 85.5 % (40.0-76.0); PLATELET 419 x1000/uL (130-400); RED BLOOD CELL COUNT 4.45 mill/uL (4.2-5.4); RED CELL DISTRIBUTION WIDTH 17.4 % (11.6-14.6)
[2020-12-05 16:27] LABS: HCG SCREEN NEGATIVE
[2020-12-05 16:58] LABS: CHLORIDE 110 mEq/L (98-107)
[2020-12-05 17:03] LABS: ETHANOL BLOOD 74 mg/dL
[2020-12-05] MEDS ORDERED: POTASSIUM CHLORIDE 20MEQ TABLET SR PO ONE (18:00)
[2020-12-05] MEDS ORDERED: ONDANSETRON HCL 4MG/2ML INJ IV ONE ×2 (18:00→20:00)
[2020-12-05 19:51] LABS: CLARITY URINE CLOUDY (CLEAR); COLOR URINE YELLOW (YELLOW); KETONES URINE 1+ (NEGATIVE); LEUKOCYTE ESTERASE URINE NEGATIVE (NEGATIVE); NITRITE URINE NEGATIVE (NEGATIVE); OCCULT BLOOD URINE TRACE (NEGATIVE); PROTEIN URINE 1+ (NEGATIVE); SPECIFIC GRAVITY URINE 1.022 (1.005-1.030); UROBILINOGEN URINE 0.2 E.U./dL (0.2-1.0)
[2020-12-05] MEDS ORDERED: KETOROLAC 30MG/ML VIAL IV ONE (20:00)
[2020-12-05 20:13] LABS: *BARBITURATES SCREEN URINE NEGATIVE (NEGATIVE)
[2020-12-05 20:14] LABS: *AMPHETAMINES SCREEN URINE NEGATIVE (NEGATIVE); *BENZODIAZEPINES SCREEN URINE NEGATIVE (NEGATIVE); *COCAINE SCREEN URINE NEGATIVE (NEGATIVE); METHADONE URINE SCREEN NEGATIVE (NEGATIVE); OPIATES URINE SCREEN NEGATIVE (NEGATIVE); PHENCYCLIDINE URINE SCREEN NEGATIVE (NEGATIVE)
[2020-12-05 20:27] LABS: CANNABINOID URINE SCREEN PRESUMTIVE POSITIVE (NEGATIVE)
[2020-12-05] MEDS ORDERED: MORPHINE SULFATE 2 MG/ML CPJ (NOT FOR IM USE) IV ONE (20:45)
[2020-12-05] MEDS ORDERED: DIPHENHYDRAMINE 25MG CAPSULE PO ONE (20:45)
[2020-12-05] MEDS ORDERED: METOCLOPRAMIDE HCL 10MG/2ML VIAL IV ONE (21:00)
[2020-12-05 21:20] VITALS: BP 156/90
[2020-12-05] MEDS ORDERED: TOPUD MT (21:27)
== END 2020-12-05 21:22 | disposition home or self-care (01) ==
LOC: ER 15:02
DX: N20.0 Calculus of kidney (principal); R10.9 Unspecified abdominal pain; E87.6 Hypokalemia; I10 Essential (primary) hypertension; K21.9 Gastro-esophageal reflux disease without esophagitis; Z98.890 Other specified postprocedural states; Z90.710 Acquired absence of both cervix and uterus
CPT/HCPCS: 36415; 74176; 80053; 80305; 80320; 81003; 83690; 84703; 85025; 93005; 96361; 96374; 96375; 96376; 99285; J1885; J2270; J2405; J2765; J7030; Q0163; Z7610; G0480

== ENCOUNTER 2021-01-08 07:03 | Emergency (ER) | payer OTHER ==
[~2021-01-08] VITALS: Ht 167.6 cm; Wt 64.0 kg
[~2021-01-08 07:03] MED LIST changes: +TOPUD MT
[2021-01-08] MEDS ORDERED: HALOPERIDOL LACTATE 5MG/ML VIAL IM NR (07:45)
[2021-01-08] MEDS ORDERED: HYDROMORPHONE HCL/PF 2MG/ML CPJ IV NR (07:45)
[2021-01-08] MEDS ORDERED: SODIUM CHLORIDE 0.9% 1,000 ML IV ONE (07:45)
[2021-01-08 07:49] LABS: CLARITY URINE CLOUDY (CLEAR); COLOR URINE YELLOW (YELLOW); KETONES URINE 2+ (NEGATIVE); LEUKOCYTE ESTERASE URINE NEGATIVE (NEGATIVE); NITRITE URINE NEGATIVE (NEGATIVE); OCCULT BLOOD URINE 3+ (NEGATIVE); PH URINE 7.5 (4.5-8.0); PROTEIN URINE 1+ (NEGATIVE); SPECIFIC GRAVITY URINE 1.019 (1.005-1.030); UROBILINOGEN URINE 0.2 E.U./dL (0.2-1.0)
[2021-01-08 08:18] LABS: BASOPHILS % 0.5 % (0.0-2.0); HEMATOCRIT. 40.3 % (36.0-48.0); HEMOGLOBIN. 13.4 g/dL (12.0-16.0); LYMPHOCYTES % 8.1 % (20.0-50.0); MEAN CORPUSCULAR HEMOGLOBIN 29.4 pg (28.0-32.0); MEAN CORPUSCULAR VOLUME 88.9 fL (81.0-99.0); MEAN PLATELET VOLUME 8.6 fl (7.4-10.4); MONOCYTES % 1.9 % (2.0-8.0); NEUTROPHILS % 89.5 % (40.0-76.0); PLATELET 334 x1000/uL (130-400); RED BLOOD CELL COUNT 4.54 mill/uL (4.2-5.4); RED CELL DISTRIBUTION WIDTH 17.4 % (11.6-14.6)
[2021-01-08 08:34] LABS: HCG SCREEN NEGATIVE
[2021-01-08 08:38] LABS: CHLORIDE 102 mEq/L (98-107)
[2021-01-08 09:14] LABS: INR 1.1; PROTHROMBIN TIME 11.9 sec (9.6-11.0)
[2021-01-08] MEDS ORDERED: HYDROMORPHONE HCL/PF 2MG/ML CPJ IV SCH (13:00)
[2021-01-08] MEDS ORDERED: HALOPERIDOL LACTATE 5MG/ML VIAL IM SCH (13:00)
[2021-01-08] MEDS ORDERED: DOXYCYCLINE HYCLATE 100 MG/VIAL IV ONE (13:15)
[2021-01-08] MEDS ORDERED: CEFOXITIN SODIUM 2 G in DEXT 5% WATER 100 ML IV SCH (13:15)
[2021-01-08] MEDS ORDERED: DOXYCYCLINE 100MG in DEXTROSE 5% WATER 100ML IV SCH (13:15)
[2021-01-08] MEDS ORDERED: CLINDAMYCIN 900 MG PREMIX 50 ML IV NR (13:30)
[2021-01-08] MEDS ORDERED: GENTAMICIN 100MG PREMIX 50 ML IV NR ×2 (13:30)
[2021-01-08] MEDS ORDERED: HALOPERIDOL LACTATE 5MG/ML VIAL IM ONE (15:00)
[2021-01-08] MEDS ORDERED: HYDROMORPHONE HCL/PF 2MG/ML CPJ IV ONE (15:00)
[2021-01-08 15:30] VITALS: BP 106/64
== END 2021-01-08 17:13 | disposition short-term general hospital (02) ==
LOC: ER 07:21
DX: R10.2 Pelvic and perineal pain (principal); N70.11 Chronic salpingitis; N20.0 Calculus of kidney; N83.209 Unspecified ovarian cyst, unspecified side; I10 Essential (primary) hypertension; Z98.890 Other specified postprocedural states; Z79.899 Other long term (current) drug therapy
CPT/HCPCS: 36415; 74176; 76830; 76856; 80053; 81003; 81025; 82962; 83690; 84703; 85025; 85610; 93005; 96361; 96365; 96366; 96368; 96372; 96375; 96376; 99285; J1170; J1580; J1630; J3490; J0694; J7060

== ENCOUNTER 2021-01-30 18:24 | Emergency (ER) | payer OTHER ==
[~2021-01-30] VITALS: Ht 167.6 cm; Wt 63.0 kg
[2021-01-30] MEDS ORDERED: LEVETIRACETAM 500MG PREMIX 100 ML IV ONE (18:45)
[2021-01-30] MEDS ORDERED: LORAZEPAM 2MG/ML CPJ IV ONE (18:45)
[2021-01-30] MEDS ORDERED: SODIUM CHLORIDE 0.9% 1,000 ML IV ONE (18:45)
[2021-01-30] MEDS ORDERED: ACETAMINOPHEN 325MG TABLET PO ONE (20:45)
[2021-01-30] MEDS ORDERED: ONDANSETRON 4MG ODT PO ONE (21:30)
[2021-01-30 21:41] LABS: BASOPHILS % 0.3 % (0.0-2.0); EOSINOPHILS % 0.2 % (0.0-5.0); HEMOGLOBIN. 13.3 g/dL (12.0-16.0); LYMPHOCYTES % 12.2 % (20.0-50.0); MEAN CORPUSCULAR HEMOGLOBIN 29.3 pg (28.0-32.0); MEAN CORPUSCULAR VOLUME 85.6 fL (81.0-99.0); MEAN PLATELET VOLUME 8.2 fl (7.4-10.4); MONOCYTES % 6.6 % (2.0-8.0); NEUTROPHILS % 80.7 % (40.0-76.0); PLATELET 287 x1000/uL (130-400); RED BLOOD CELL COUNT 4.55 mill/uL (4.2-5.4); RED CELL DISTRIBUTION WIDTH 17.3 % (11.6-14.6)
[2021-01-30 21:47] LABS: CHLORIDE 104 mEq/L (98-107)
[2021-01-30 21:51] LABS: ETHANOL BLOOD < 10 mg/dL
[2021-01-30] MEDS ORDERED: KEPP500 MT (22:28)
[2021-01-30] MEDS ORDERED: METOCLOPRAMIDE HCL 10MG/2ML VIAL IV SCH (22:45)
[2021-01-30] MEDS ORDERED: HYDROCODONE/ACETAMINOPHEN 5/325MG TABLET PO SCH (22:45)
[2021-01-30] MEDS ORDERED: METO-293 MT (23:16)
[2021-01-30 23:36] VITALS: BP 192/96
== END 2021-01-30 23:38 | disposition home or self-care (01) ==
LOC: ER 20:03
DX: R56.9 Unspecified convulsions (principal); I10 Essential (primary) hypertension; Z98.890 Other specified postprocedural states; Z79.899 Other long term (current) drug therapy
CPT/HCPCS: 36415; 71045; 80053; 80320; 84484; 85025; 96365; 96375; 99284; J1953; J2060; J2765; J7030; Q0162; G0480

== ENCOUNTER 2021-01-31 21:59 | Emergency (ER) | payer MEDICAID, OTHER ==
[~2021-01-31] VITALS: Ht 167.6 cm; Wt 64.0 kg
[~2021-01-31 21:59] MED LIST changes: +METO-293 MT
[2021-01-31 22:55] LABS: BASOPHILS % 0.6 % (0.0-2.0); EOSINOPHILS % 0.3 % (0.0-5.0); HEMATOCRIT. 39.7 % (36.0-48.0); HEMOGLOBIN. 13.5 g/dL (12.0-16.0); LYMPHOCYTES % 17.1 % (20.0-50.0); MEAN CORPUSCULAR VOLUME 85.5 fL (81.0-99.0); MEAN PLATELET VOLUME 8.1 fl (7.4-10.4); MONOCYTES % 9.5 % (2.0-8.0); NEUTROPHILS % 72.5 % (40.0-76.0); PLATELET 269 x1000/uL (130-400); RED BLOOD CELL COUNT 4.64 mill/uL (4.2-5.4); RED CELL DISTRIBUTION WIDTH 16.5 % (11.6-14.6)
[2021-01-31] MEDS ORDERED: LEVETIRACETAM 500MG PREMIX 100 ML IV ONE (23:00)
[2021-01-31 23:02] LABS: CHLORIDE 102 mEq/L (98-107)
[2021-01-31 23:07] LABS: ETHANOL BLOOD < 10 mg/dL
[2021-01-31] MEDS ORDERED: LORAZEPAM 2MG/ML CPJ IV ONE (23:15)
[2021-02-01 00:30] VITALS: BP 176/109
[2021-02-01] MEDS ORDERED: HYDRALAZINE 20MG/ML VIAL IV ONE (00:30)
== END 2021-02-01 01:54 | disposition short-term general hospital (02) ==
LOC: ER 21:59
DX: R56.9 Unspecified convulsions (principal); I10 Essential (primary) hypertension; Z79.899 Other long term (current) drug therapy; Z20.822 Contact with and (suspected) exposure to COVID-19
CPT/HCPCS: 36415; 80053; 80320; 85025; 87426; 93005; 96365; 96375; 99284; J0360; J1953; J2060; G0480

== ENCOUNTER 2021-04-01 15:21 | Emergency (ER) | payer OTHER ==
[~2021-04-01] VITALS: Ht 165.1 cm; Wt 65.0 kg
[2021-04-01] MEDS ORDERED: KETOROLAC 30MG/ML VIAL IV STA (17:09)
[2021-04-01] MEDS ORDERED: ONDANSETRON HCL 4MG/2ML INJ IV STA (17:09)
[2021-04-01] MEDS ORDERED: SODIUM CHLORIDE 0.9% 1,000 ML IV ONE (17:15)
[2021-04-01] MEDS ORDERED: LORAZEPAM 2MG/ML CPJ IV ONE (18:15)
[2021-04-01] MEDS ORDERED: MAGNESIUM/ALUMINUM HYDROXIDE/SIMETHICONE 30ML UDC PO ONE (18:15)
[2021-04-01 18:16] LABS: BASOPHILS % 0.2 % (0.0-2.0); HEMATOCRIT. 37.2 % (36.0-48.0); HEMOGLOBIN. 12.6 g/dL (12.0-16.0); LYMPHOCYTES % 8.7 % (20.0-50.0); MEAN CORPUSCULAR HEMOGLOBIN 29.4 pg (28.0-32.0); MEAN CORPUSCULAR VOLUME 87.2 fL (81.0-99.0); MEAN PLATELET VOLUME 8.8 fl (7.4-10.4); MONOCYTES % 3.7 % (2.0-8.0); NEUTROPHILS % 87.4 % (40.0-76.0); PLATELET 271 x1000/uL (130-400); RED BLOOD CELL COUNT 4.27 mill/uL (4.2-5.4); RED CELL DISTRIBUTION WIDTH 17.6 % (11.6-14.6)
[2021-04-01 18:27] LABS: CHLORIDE 107 mEq/L (98-107)
[2021-04-01 18:32] LABS: ETHANOL BLOOD < 10 mg/dL
[2021-04-01 18:54] LABS: HCG SCREEN NEGATIVE
[2021-04-01] MEDS ORDERED: ONDA4TAB5 MT (22:02)
[2021-04-01] MEDS ORDERED: AMOX-424 MT (22:03)
[2021-04-01] MEDS ORDERED: OMEP40CA12 MT (22:03)
[2021-04-01 22:35] VITALS: BP 134/84
== END 2021-04-01 22:36 | disposition home or self-care (01) ==
LOC: ER 15:54
DX: N12 Tubulo-interstitial nephritis, not specified as acute or chronic (principal); F17.200 Nicotine dependence, unspecified, uncomplicated; I10 Essential (primary) hypertension; Z88.6 Allergy status to analgesic agent; Z79.899 Other long term (current) drug therapy; Z86.59 Personal history of other mental and behavioral disorders
CPT/HCPCS: 36415; 74176; 80053; 80320; 83690; 84703; 85025; 96361; 96374; 96375; 99284; 99406; J1885; J2060; J2405; J7030; G0480

== ENCOUNTER 2021-10-02 08:57 | Emergency (ER) | payer OTHER ==
[~2021-10-02] VITALS: Ht 165.1 cm; Wt 64.0 kg
[~2021-10-02 08:57] MED LIST changes: +AMOX-424 MT; +OMEP40CA20 MT; +ONDA4TAB5 MT
[2021-10-02] MEDS ORDERED: ONDANSETRON HCL 4MG/2ML INJ IV STA (09:21)
[2021-10-02] MEDS ORDERED: SODIUM CHLORIDE 0.9% 1,000 ML IV ONE (09:30)
[2021-10-02] MEDS ORDERED: LORAZEPAM 2MG/ML CPJ IV ONE (10:00)
[2021-10-02] MEDS ORDERED: MORPHINE SULFATE 2 MG/ML CPJ (NOT FOR IM USE) IV ONE (10:00)
[2021-10-02 10:02] LABS: BASOPHILS % 0.5 % (0.0-2.0); EOSINOPHILS % 1.8 % (0.0-5.0); HEMATOCRIT. 30.9 % (36.0-48.0); HEMOGLOBIN. 10.4 g/dL (12.0-16.0); LYMPHOCYTES % 18.9 % (20.0-50.0); MEAN CORPUSCULAR HEMOGLOBIN 30.6 pg (28.0-32.0); MEAN CORPUSCULAR VOLUME 91.3 fL (81.0-99.0); NEUTROPHILS % 72.8 % (40.0-76.0); PLATELET 325 x1000/uL (130-400); RED BLOOD CELL COUNT 3.39 mill/uL (4.2-5.4); RED CELL DISTRIBUTION WIDTH 15.1 % (11.6-14.6)
[2021-10-02 10:09] LABS: CHLORIDE 106 mEq/L (98-107)
[2021-10-02 10:13] LABS: ETHANOL BLOOD < 10 mg/dL; HCG SCREEN NEGATIVE
[2021-10-02] MEDS ORDERED: ACETAMINOPHEN 325MG TABLET PO ONE (11:45)
[2021-10-02 12:03] LABS: CLARITY URINE CLEAR (CLEAR); COLOR URINE YELLOW (YELLOW); KETONES URINE 1+ (NEGATIVE); LEUKOCYTE ESTERASE URINE TRACE (NEGATIVE); NITRITE URINE NEGATIVE (NEGATIVE); OCCULT BLOOD URINE NEGATIVE (NEGATIVE); PH URINE 8.5 (4.5-8.0); PROTEIN URINE NEGATIVE (NEGATIVE); UROBILINOGEN URINE 0.2 E.U./dL (0.2-1.0)
[2021-10-02 12:11] LABS: METHADONE URINE SCREEN NEGATIVE (NEGATIVE)
[2021-10-02 12:12] LABS: *AMPHETAMINES SCREEN URINE NEGATIVE (NEGATIVE); *BARBITURATES SCREEN URINE NEGATIVE (NEGATIVE); *BENZODIAZEPINES SCREEN URINE NEGATIVE (NEGATIVE); *COCAINE SCREEN URINE NEGATIVE (NEGATIVE); PHENCYCLIDINE URINE SCREEN NEGATIVE (NEGATIVE)
[2021-10-02 12:55] LABS: CANNABINOID URINE SCREEN PRESUMTIVE POSITIVE (NEGATIVE); OPIATES URINE SCREEN PRESUMTIVE POSITIVE (NEGATIVE)
[2021-10-02] MEDS ORDERED: OMEP40CA20 MT (13:06)
[2021-10-02 13:30] VITALS: BP 148/95
== END 2021-10-02 13:51 | disposition home or self-care (01) ==
LOC: ER 09:11
DX: R10.33 Periumbilical pain (principal); I10 Essential (primary) hypertension; Z79.899 Other long term (current) drug therapy
CPT/HCPCS: 36415; 74176; 80053; 80305; 80320; 81003; 83690; 84703; 85025; 96361; 96374; 96375; 99284; J2060; J2270; J2405; J7030; G0480

== ENCOUNTER 2022-02-08 17:45 | Emergency (ER) | payer OTHER ==
[~2022-02-08] VITALS: Ht 167.6 cm; Wt 64.0 kg
[2022-02-08] MEDS ORDERED: MAGNESIUM/ALUMINUM HYDROXIDE/SIMETHICONE 30ML UDC PO STA (18:06)
[2022-02-08] MEDS ORDERED: PANTOPRAZOLE SODIUM 40 MG/VIAL IV STA (18:06)
[2022-02-08] MEDS ORDERED: ONDANSETRON HCL 4MG/2ML INJ IV STA (18:06)
[2022-02-08] MEDS ORDERED: SODIUM CHLORIDE 0.9% 1,000 ML IV ONE (18:15)
[2022-02-08 18:59] LABS: CHLORIDE 103 mEq/L (98-107)
[2022-02-08 19:00] LABS: HCG SCREEN NEGATIVE
[2022-02-08 19:05] LABS: BASOPHILS % 0.4 % (0.0-2.0); EOSINOPHILS % 0.1 % (0.0-5.0); HEMATOCRIT. 45.6 % (36.0-48.0); LYMPHOCYTES % 9.5 % (20.0-50.0); MEAN CORPUSCULAR HEMOGLOBIN 29.8 pg (28.0-32.0); MEAN CORPUSCULAR VOLUME 90.6 fL (81.0-99.0); MEAN PLATELET VOLUME 8.4 fl (7.4-10.4); MONOCYTES % 1.9 % (2.0-8.0); NEUTROPHILS % 88.1 % (40.0-76.0); PLATELET 282 x1000/uL (130-400); RED BLOOD CELL COUNT 5.03 mill/uL (4.2-5.4); RED CELL DISTRIBUTION WIDTH 15.5 % (11.6-14.6)
[2022-02-08] MEDS ORDERED: VISCOUS LIDOCAINE 2% 15 ML UDC MM NR (20:00)
[2022-02-08] MEDS ORDERED: DIPHENHYDRAMINE 50MG/ML VIAL IV NR (20:00)
[2022-02-08] MEDS ORDERED: PROCHLORPERAZINE 10MG/2ML VIAL IV PRN (20:00)
[2022-02-08] MEDS ORDERED: ONDANSETRON HCL 4MG/2ML INJ IV ONE (22:00)
[2022-02-08] MEDS ORDERED: ACETAMINOPHEN 325MG TABLET PO ONE (22:00)
[2022-02-08] MEDS ORDERED: PROC-11 MT (22:49)
[2022-02-08 22:55] VITALS: BP 158/89
== END 2022-02-08 22:56 | disposition home or self-care (01) ==
LOC: ER 17:45
DX: R10.9 Unspecified abdominal pain (principal); I10 Essential (primary) hypertension; Z79.899 Other long term (current) drug therapy; Z86.59 Personal history of other mental and behavioral disorders; Z98.890 Other specified postprocedural states
CPT/HCPCS: 36415; 80053; 83690; 84703; 85025; 93005; 96374; 96375; 96376; 99284; C9113; J0780; J1200; J2405; J7030